=== PATIENT | female | born 2000 | race Two or more races ===

== ENCOUNTER 2024-11-03 18:03 | Emergency (ER) | payer OTHER, BC, SELFPAY ==
[2024-11-03] VITALS (17 sets, daily range): BP systolic 121–149; BP diastolic 62–98; PULSE 80–83; RESP 16–18; TEMP 36.6; O2SAT 93–100
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
--- NOTE | 2024-11-03 18:28 | ECG_ITS ---
Test Date: 2024-11-03 19:02:07 Measurements Intervals [place] Rate: 65 P: 47 FL: 152 QRS: 14 QRSD: 92 T: 14 QT: 410 QTc: 427 Interpretive Statements SINUS RHYTHM WITH SINUS ARRHYTHMIA BASELINE ARTIFACT- I, II, AVR, AVF NORMAL ECG No previous ECG available for comparison Electronically Signed On 11-03-2024 19:58:08 CDT by Charles Ahumada D.O.
[2024-11-03 18:51] LABS: Basophils Absolute Auto 0.1 K/mm3 (0.0-0.1); Basophils Percent Auto 0.8 % (0.2-1.2); Eosinophils Absolute Auto 0.2 K/mm3 (0-0.3); Eosinophils Percent Auto 2.4 % (0-4.4); Hematocrit 34.8 % (37.0-47.0); Hemoglobin 10.4 g/dL (12.0-15.0); Immature Granulocyte Absolute 0.01 K/mm3 (0.00-0.031); Immature Granulocyte Percent A 0.2 % (0-0.5); Lymphocytes Absolute Auto 2.81 K/mm3 (0.9-3.2); Lymphocytes Percent Auto 45.5 % (18.3-44.2); Mean Corpuscular HGB Conc 29.9 g/dl (32-36); Mean Corpuscular Hemoglobin 22.6 pg (26-34); Mean Corpuscular Volume 75.7 fl (80-100); Mean Platelet Volume 8.4 fl (7.4-10.4); Monocytes Absolute Auto 0.6 K/mm3 (0.1-0.6); Monocytes Percent Auto 9.2 % (2.6-8.5); Neutrophils Absolute Auto 2.6 K/mm3 (1.3-6.7); Neutrophils Percent Auto 41.9 % (45.5-73.1); Platelet Count Result 447 k/mm3 (150-375); White Blood Count 6.2 K/mm3 (4.5-10.0)
[2024-11-03 19:03] LABS: Ethanol < 10 mg/dL (<10)
[2024-11-03 19:04] LABS: Alanine Aminotransferase 14 U/L (6-35); Albumin Level 4.2 g/dL (3.5-5.1); Alkaline Phosphatase 74 U/L (38-126); Anion Gap 8 mmol/L (4-12); Aspartate Amino Transferase 39 U/L (14-36); Bilirubin,Total 0.3 mg/dL (0.2-1.3); Blood Urea Nitrogen 13 mg/dL (7-17); Calcium 8.9 mg/dL (8.4-10.2); Carbon Dioxide 26 mmol/L (22-30); Chloride 107 mmol/L (98-107); Estimated CRCL calculation 99 ml/min; Estimated Glomerular Filt Rate > 60; Glucose 94 mg/dL (65-110); Sodium 141 mmol/L (137-145); Total Protein 7.8 g/dL (6.3-8.2)
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
[2024-11-03 19:08] LABS: INR 1.1; Prothrombin Time 14.2 Seconds (11.1-14.7)
[2024-11-03 19:09] LABS: Partial Thromboplastin Time 23.3 Seconds (22.3-36.8)
[2024-11-03 19:21] LABS: Band Neutrophils Percent 0 % (0-6)
[2024-11-03 19:22] LABS: Anisocytosis 1+; Hypochromasia 1+; Platelet Estimate Adequate (Adequate); Schistocytes None Seen
[2024-11-03 19:47] LABS: SPREG INTERNAL CONTROL Positive; Serum Qual hCG Negative
--- OUTSIDE RECORDS SUMMARY | 2024-11-03 20:06 | XMS_ITS | Data Portability ---
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 Plan of Treatment Reminders Order Date Submit Date Provider Last Modified By Organization Details Last Modified Time Details Appointments None recorded. Lab lipid panel, blood 2016 017 AGATA [facility], [address], [place], [address], 7 17:08:40 hemoglobin A1c, QN, blood 2016 017 AGATA [facility], [address], [address], [place], [address], 7 13:49:45 mononucleo sis, heterophil e Ab, blood 2015 016 [id number]_ [id number] [facility], [address], [place], [address], 6 04:28:46 HbA1c (hemoglobi n A1c), blood 2015 016 [email or web address] 7 [facility], [address], [place], [address], 6 22:14:04 lipid panel, serum 2015 016 [email or web address] 7 [facility], [address], [address], [place], [address], 6 22:14:04 Referral pediatric bariatric medicine referral - Pt who is desiring evaluation for weight loss program 2015 016 [email or web address] Not available 6 22:14:04 Procedures None recorded. Surgeries None recorded. Imaging ultrasound , neck - 15 yr old with tonsilliti s and pharygeal swelling - regarding retrophary ngeal abscess - please call report to [phone] 2015 016 [id number]_ [id number] [facility], [address] [place], [address], 6 04:28:45 Medication Orders Ventolin HFA 90 mcg/actuat ion aerosol inhaler 2016 017 INTERFACE Not available 7 18:54:35 Bromfed DM 2 mg-30 mg-10 mg/5 mL oral syrup 2016 017 ATHENAFAX Not available 7 19:51:51 Pooja-D 24 Hour 180 mg-240 mg tablet,ext ended release 2015 016 DBA_PATCH_ [id number] Not available 6 04:28:44 amoxicilli n 875 mg-potassi um clavulanat e 125 mg tablet 2015 016 DBA_PATCH_ [id number] Not available 6 04:28:49 Saline Nasal 0.65 % spray aerosol 2015 016 DBA_PATCH_ [id number] Not available 6 04:28:50 Lexapro 10 mg tablet 2015 016 INTERFACE Not available 6 17:43:44 cetirizine 10 mg tablet 2015 016 7 [facility], [address] [facility], [place], [address], 6 22:14:04 Patanase 0.6 % nasal spray 2015 016 [email or web address] 7 [facility], [address] [place] [address], [address], 6 22:14:03 triamcinol one acetonide 0.1 % topical ointment 2015 016 [email or web address] 7 [facility], [facility] [place], [address], 6 22:14:03 Patient TargetsNo targets recorded. Patient Instructions Encounter Date Encounter Id Patient Instructions Last Modified By Organization Details Last Modified Time 06/12/2015 [id number] influenza (flu) vaccine: care instructions [email or web address] Not available 06/18/2015 12:07:26 learning about abstinence for teens [email or web address] Not available 06/13/2015 22:14:04 learning about drug use in teens [email or web address] Not available 06/13/2015 22:14:03 learning about stress in teens Not available 06/13/2015 22:14:03 08/01/2015 [id number] Discussed weight management strategies, areas of stress - brother, school challenges - review management strategies pt states she is learning in therapy. Face - to face - 30 minutes [email or web address] Not available 09/11/2015 04:31:57 09/30/2015 [id number] Discussed genera l care for upper respiratory infection - saline and suction, use of humififier and increased clear liquids appropriate for age. If high fever, increased work of breathing or decreased urine output to call immediately. Not available 09/30/2015 15:36:32 06/15/2016 [id number] A healthy lifestyle: care instructions [email or web address] Not available 06/15/2016 18:51:05 learning about abstinence for teens [email or web address] Not available 06/15/2016 18:51:04 learning about drug use in teens ywhitt Not available 06/15/2016 18:51:05 learning about stress in teens [email or web address] Not available 06/15/2016 18:51:05 07/27/2016 [id number] starting a weigh t loss plan: care instructions [email or web address] Not available 07/28/2016 11:53:59 eating healthy foods: care instructions ywhitt Not available 07/28/2016 11:53:59 Juanis commended o n making the changes started - encouraged to continue - she and Mom have discussed plans to increase exercise with the change in weat herLouis [email or web address] Not available 07/27/2016 23:12:04 Reason for Referral Pediatric Bariatric Medicine Referral for Morbid obesity Pt who is desiring evaluation for weight loss program Referring Physician: Berenice Casas, Pediatric Medicine, Encounter Date: 06/12/2015 Results Created Date Observation Date Name Description Value Unit Range Abnormal Flag Note LastModifiedBy Organization Detail LastModifiedTime 06/12/19 16 06/13/2015 lipid panel , serum cholesterol, total 187 mg/dL 125-17 0 high Not Available [facility] [address] [address] [place], [address], 06/13/2015 08:58:37 06/12/19 16 06/13/2015 lipid panel , serum HDL cholesterol 30 mg/dL 36-76 low Not Available [facility] [address] [place], [address], 06/13/2015 08:58:37 06/12/19 16 06/13/2015 lipid panel , serum triglyceride s 198 mg/dL 40-136 high Not Available [facility] [address] [place], [address], 06/13/2015 08:58:37 06/12/19 16 06/13/2015 lipid panel , serum LDL-choleste rol 117 mg/dL _(tj c) <110 high Leonard able range <100 mg/dL for patie nts with CHD or diabe antonio and <70 mg/dL for diabe tic patie nts with known heart disea se. Not Available [facility] [address] [place], [address], 06/13/2015 08:58:37 06/12/19 16 06/13/2015 lipid panel , serum chol/HDLC ratio 6.2 (calc ) < or = 5.0 high Not Available [facility] [address] [address] [place], [address], 06/13/2015 08:58:37 06/12/19 16 06/13/2015 lipid panel , serum non HDL cholesterol 157 mg/dL _(tj c) <120 high Not Available [facility] [address] [address] [place], [address], 06/13/2015 08:58:37 06/12/19 16 06/13/2015 HbA1c (hemo globi n A1c), blood hemoglobin A1C 5.7 %_of_ total _HGB <5.7 high Accor ding to ADA guide lines , hemog lobin A1c <7.0% repre sents optim al contr ol in non-p regna nt diabe tic patie nts. Diffe rent metri cs may apply to speci fic patie nt cbul destiny s. [facility] al Care in Diabe antonio-2 013. Diabe antonio Care. 2013; 36:s1 1-s66 For the purpo se of screchloe gould for the prese nce of diabe antonio <5.7% Consi stent with the absen ce of diabe antonio 5.7-6 .4% Consi stent with incre ased risk for diabe antonio (pred iabet es) >or=6 .5% Consi stent with diabe antonio This assay resul t is consi stent with an incre ased risk of diabe antonio. Curre ntly, no conse nsus exist s for use of hemog lobin A1c for diagn osis of diabe antonio for child hattie. Not Available [facility] [address] [address] [place], [address], 06/13/2015 08:58:38 09/30/19 16 10/01/2015 monon ucleo sis, heter ophil e Ab, serum heterophile, mono screen NEGATI VE negati ve normal Not Available [facility] [address] [address] [place], [address], 10/01/2015 10:42:27 06/15/19 17 06/22/2016 lipid panel , blood cholesterol, total 192 mg/dL 125-17 0 high Not Available [facility] [address], [address], 06/22/2016 17:08:40 06/15/19 17 06/22/2016 lipid panel , blood HDL cholesterol 31 mg/dL 36-76 low Not Available [facility] [address], [address], 06/22/2016 17:08:40 06/15/19 17 06/22/2016 lipid panel , blood chol/HDLC ratio 6.2 (calc ) < or = 5.0 high Not Available [address], [address], 06/22/2016 17:08:40 06/15/19 17 06/22/2016 lipid panel , blood non HDL cholesterol 161 mg/dL _(tj c) <120 high [facility] Lipid Panel (fast ing) is recom alysha renteria se of a poten tial lipid disor savage. Not Available [facility] [address], [address], 06/22/2016 17:08:40 10/01/19 16 09/30/2015 ultra sound , neck No observ ation record ed. [email or web address] Not Available 09/21 17:41:41 Result Notes None recorded. Problems Name Problem SNOMED Code Status Onset Date Resolution Date Notes Provider Name and Address Organization Details Recorded Time Anxiety disorder 252335172 Active Berenice Casas MD [address] [place], [address], [facility] [place] [facility] 6 17:43:39 Premenstrual tension syndrome [id number] Sarita Casas MD [address] [place], [address], [facility] 6 17:55:05 Impacted cerumen 39697173 Sarita Casas MD [address] [place], [address], [facility], 6 17:55:05 Tonsillitis 13231936 Active Berenice Casas MD [address] [place], [address], [facility], 6 17:55:05 Morbid obesity 786847489 Active Berenice Casas MD [address] [place], [place] [address], [address], [facility], 6 22:14:03 Acanthosis nigricans 812595915 Active Berenice Casas MD [address] [place], [place] [address], [address], [facility], 6 17:43:39 Headache 21169378 Active Berenice Casas MD [address] [place] [address], [address], [facility], 6 22:14:03 Allergic rhinitis 95316730 Active Berenice Casas MD [address] [place] [address], [address], [facility], 6 22:14:03 Contact dermatitis 56594274 Active Berenice Casas MD [address] [place], [place] [address], [address], [facility], 6 22:14:03 Cellulitis and abscess of trunk 260331473 Active Berenice Casas MD [address] [place] [address], [place], [address], [facility], 6 17:55:05 Attention deficit hyperactivity disorder 642938696 Active Berenice Casas MD [address] [place], [place] [address], [address], [facility], 6 17:43:39 Problem Notes None recorded. Procedures Surgical History Date Name Laterality Status Provider Name and Address Organization Details Recorded Time 5 Cerumen Removal completed Berenice Casas MD [address] [place] [address], [address], [facility] 06/13/2014 05:29:29 Absence of any Surgery completed Berenice Peoples [facility] 06/12/2015 17:35:43 Imaging Results None recorded. Procedure Notes None recorded. Medical Equipment None Reported. Allergies No known drug allergies Medications Name Sig Start Date Stop Date Status Note LastModified by Organization Details LastModified Time metformin 500 mg tablet active Not Available Not Available Not Available clindamycin HCl 300 mg capsule active Not Available Not Available Not Available cetirizine 10 mg tablet Take 1 tablet every day by oral route. 2015 active Not Available Not Available Not Avai lable benzonatate 200 mg capsule active Not Available Not Available Not Available hydrocodone 5 mg-acetamin ophen 325 mg tablet active Not Available Not Available No t Available prednisone 20 mg tablet active Not Available Not Available Not Available penicillin V potassium 500 mg tablet active Not Available Not Available Not Available sulfamethox azole 800 mg-trimetho prim 160 mg tablet Take 1 tablet twice a day by oral route for 10 days. 08/27 completed Not Available Not Available Not Available amoxicillin 875 mg tablet Take 1 tablet every 12 hours by oral route for 10 days. active Not Available Not Available No t Available naproxen sodium 550 mg tablet Take 1 tablet every 12 hours by oral route. active Not Available Not Available No t Available triamcinolo ne acetonide 0.1 % topical ointment APPLY TWICE DAILY active Not Available Not Available No t Available clotrimazol e-betametha sone 1 %-0.05 % topical cream active Not Available Not Available Not Available zolpidem 5 mg tablet active Not Available Not Available No t Available ergocalcife rol (vitamin D2) 1,250 mcg (50,000 unit) capsule active Not Available Not Available Not Available ibuprofen 600 mg tablet Take 1 tablet 3 times a day by oral route as needed. active Not Available Not Available No t Available bromphenira mine-pseudo ephedrine-D M 2 mg-30 mg-10 mg/5 mL oral syrup Take 10 mL every 4-6 hours by oral route as directed. active Not Available Not Available No t Available doxycycline hyclate 100 mg tablet active Not Available Not Available No t Available amoxicillin 875 mg-potassiu m clavulanate 125 mg tablet Take 1 tablet every 12 hours by oral route. active Not Available Not Available No t Available escitalopra m 10 mg tablet 1 po q day active Not Available Not Available No t Available Saline Nasal 0.65 % spray aerosol [place] 1-2 spray in nostril then suction; repeat on second nostril - DO NOT spray in both nostrils at same time 2015 active Not Available Not Available Not Avai lable Pooja-D 24 Hour 180 mg-240 mg tablet,exte nded release Take 1 tablet every day by oral route. 2015 active Not Available Not Available Not Avai lable ProAir HFA 90 mcg/actuati on aerosol inhaler Inhale 2 puffs every 4 hours by inhalatio n route. active Not Available Not Available No t Available Vyvanse 50 mg capsule Take 1 capsule every day by oral route in the morning for 30 days. 02/24 completed Not Available Not Available Not Available Vyvanse 40 mg capsule Take 1 capsule every day by oral route in the morning for 30 days. 07/27 completed Not Available Not Available Not Available olopatadine 0.6 % nasal spray [place] 2 sprays twice a day by intranasa l route. active Not Available Not Available No t Available Vitals Date Recorded Body temperature Body mass index (BMI) Body height Heart rate Body weight Systolic blood pressure Diastolic blood pressure Provider Name and Address Organization Details Last Updated DateTime 6 97.8 [degF] 51.3 kg/m2 157.48 cm 94 /min 647851. 004198 g 151 mm[Hg] 94 mm[Hg] Berenice Peoples [facility], 6 17:35:43 Date Recorded Body height Body weight Body mass index (BMI) Body temperature Heart rate Systolic blood pressure Diastolic blood pressure Provider Name and Address Organization Details Last Updated DateTime 7 157.48 cm 601040. 1 g 53.3 kg/m2 97.7 [degF] 84 /min 130 mm[Hg] 84 mm[Hg] GLORIA DIA [facility], 7 18:08:47 Date Recorded Body height Body weight Body mass index (BMI) Body temperature Provider Name and Address Organization Details Last Updated DateTime 07/27/2016 160.02 cm 085044.12 g 51.1 kg/m2 98.6 [degF] GLORIA DIA [facility] 07/27/2016 18:18:00 Date Recorded Body mass index (BMI) Body weight Body height Body temperature Provider Name and Address Organization Details Last Updated DateTime 08/01/2015 54.1 kg/m2 397252.77 7057 g 154.94 cm 98.5 [degF] Berenice Peoples [facility] 08/01/2015 17:06:11 Date Recorded Body height Body weight Body mass index (BMI) Body temperature Provider Name and Address Organization Details Last Updated DateTime 09/30/2015 154.94 cm 669624.72 g 53.5 kg/m2 98.6 [degF] Eric Stanley [facility] 09/30/2015 15:39:07 Social History Question Answer Notes LastModified by Organizat ion Details LastModified Time Tobacco Smoking Status Never Smoker Not Available [facility] 03/19/2020 03:10:30 Animal Exposure? No Information not available 06/06/2013 What Is Your Level Of Caffeine Consumption? Occasional [id number] Information not available 03/19/2020 How Much Tobacco Do You Chew? None [id number] Information not available 03/19/2020 What Type Of Sewer And Inspector Do You Use? None [id number] Information not available 03/19/2020 What Type Of Diet Are You Following? REGULAR [id number] Information not available 03/19/2020 Education 8 Information no t available 06/06/2013 Family History Of Heart Disease? Yes Information not available 06/06/2013 Are There Any Guns Present In Your Home? No [id number] Information not available 03/19/2020 Which Of Your Hands Is Dominant? Left [id number] Information not available 03/19/2020 Hard Of Hearing Or Deaf In One Or Both Ears? No Information not available 06/06/2013 What Is Your Home Situation? Mother [id number] Information not available 03/19/2020 Legally Blind In One Or Both Eyes? No Information not available 06/06/2013 MOTHER'S AGE 42 Information not available 06/06/2013 SIBLINGS NAMES/AGES 1. AGE: Information not available 06/06/2013 MOTHER'S NAME Violet Marquez Informatio n not available 06/06/2013 MOTHER'S HEALTH - GOOD? Yes Information not available 06/06/2013 FATHER'S NAME Jayson Marquez Informatio n not available 06/06/2013 FATHER'S AGE 46 Information not available 06/06/2013 FATHER'S HEALTH - GOOD? Yes Information not available 06/06/2013 SMOKERS IN HOME No Information not available 06/06/2013 MOTHER'S OCCUPATION Health Insurance Information not available 06/06/2013 FATHER'S OCCUPATION [place] Information not available 06/06/2013 LIVING STATUS LIVES WITH MOTHER Information not available 06/06/2013 HOURS SLEEP/NIGHT 8+ Information not available 06/06/2013 NAME OF SCHOOL [employer] Information not available 06/06/2013 PETS IN HOME No Information not available 06/06/2013 Marital Status Informatio n not available 06/06/2013 What Is Your Parents' Marital Status? [id number] Information not available 03/19/2020 Performs Monthly Self-breast Exam? No EDUCATED ON BREAST EXAM smoney Information not available 06/12/2015 What Is The Name Of Your School? [employer] [id number] Information not available 03/19/2020 Do You Use Your Seat Belt Or Car Seat Routinely? Yes [id number] Information not available 03/19/2020 Seat Belts Used Routinely Yes Information not available 06/06/2013 Are You Sexually Active? No [id number] Information not available 03/19/2020 Smoke Alarm In Home Yes Information not available 06/06/2013 Do You Have Smoke And Carbon Monoxide Detectors In Your Home? Yes [id number] Information not available 03/19/2020 How Much Tobacco Do You Smoke? No [id number] Information not available 03/19/2020 General Stress Level Medium Information not available 06/06/2013 Do You Use Sunscreen Routinely? Yes [id number] Information not available 03/19/2020 How Many Years Have You Smoked Tobacco? 0 [id number] Information not available 03/19/2020 Year In School 11 Informatio n not available 09/30/2015 Sex: Unknown Functional Status Question Answer Note LastModified by Organizat ion Details LastModified Time What is your level of alcohol consumption? None [id number] Information not available 03/19/2020 Are you currently employed? No [id number] Information not available 03/19/2020 What is your exercise level? Occasional [id number] Information not available 03/19/2020 Mental Status None recorded. Family History Nothing Reported. Medical History Condition Response Diabetes N Heart Problems N Muscle, Joint, or Bone Problems N Bedwetting N Vision or Eye Problems N Seizures/Epilepsy N Blood Diseases N Ear or Hearing Problems N Serious Illness or Injuries N Congenital Anomalies N Cancer N ADD or ADHD Y Thyroid Problems N Depression N Allergies N Asthma N Developmental or Behavioral Disorders N Skin Problems N Anemia N Bladder or Kidney Problems N Constipation N Hospital Admission other than N Eczema, Hives or other skin conditions Y Chicken Pox N Gynecological History Statement/Question Response Flow Moderate Duration of Flow (days) 5 Menstrual Cramps Y Age at Menarche 9 Current Control Method Abstinence Miss School due to Cramps Y Frequency of Cycle (Q days) 30 Sexually Active? N Control at End of Visit Abstinence Menses Monthly N LMP Approximate Desired Control Method Abstinence Obstetrics History GPAL:G 0 P 0 0 0 0 Immunizations Vaccine Type Date Status Note Provider Nam e and Address Organization Details Recorded Time Influenza, live, quadrivalent, intranasal 4 completed Not Available [facility] 2019 02:20:30 DTaP 0 completed [facility], 06/06/2013 17:55:19 DTaP 9 completed [facility], 06/06/2013 17:55:19 DTaP 3 completed [facility], 06/06/2013 17:55:19 Hep B, adolescent or pediatric 9 completed [facility], 06/06/2013 17:55:19 DTaP 9 completed [facility], 06/06/2013 17:55:19 Hep B, adolescent or pediatric 9 completed Lorie Tunde null, [place] - [facility], 06/06/2013 17:55:20 Hep B, adolescent or pediatric 9 completed [place] [facility], 06/06/2013 17:55:20 DTaP 9 completed [place] [facility], 06/06/2013 17:55:20 IPV 0 completed [place] [facility], 06/06/2013 18:39:20 Hib, unspecified formulation 0 completed [place] [facility], 06/06/2013 18:39:20 IPV 3 completed [place] [facility], 06/06/2013 18:39:20 MMR 3 completed [place] [facility], 06/06/2013 18:39:20 Hib, unspecified formulation 9 completed [place] [facility], 06/06/2013 18:39:20 MMR 0 completed [place] [facility], 06/06/2013 18:39:20 IPV 9 completed L[place] [facility], 06/06/2013 18:39:20 Hib, unspecified formulation 9 completed L[place] [facility], 06/06/2013 18:39:20 Hib, unspecified formulation 9 completed L[place] [facility], 06/06/2013 18:39:20 IPV 9 completed [place] [facility], 06/06/2013 18:39:20 Influenza, live, quadrivalent, intranasal 1 completed [place] [facility], 06/06/2013 18:45:08 Hep A, unspecified formulation 3 completed L[place] [facility], 06/06/2013 18:45:08 Tdap 1 completed BASIL[facility], 06/06/2013 18:45:08 Hep A, unspecified formulation 1 completed BASILIA Arnold [facility], 06/06/2013 18:45:08 meningococcal MCV4, unspecified formulation 1 completed BASILIA Arnold [facility], 06/06/2013 18:45:08 Influenza, live, quadrivalent, intranasal 5 completed Not Available [facility] 2019 02:20:28 Meningococcal MCV4O 5 completed Not Available [facility] 2019 02:20:27 Influenza, split virus, quadrivalent, PF 6 completed Not Available [facility] 2019 02:20:36 HPV9 6 completed Not Available [facility] 2019 02:20:35 Past Encounters Encounter ID Performer Location Encounter Start Date Encounter Closed Date Diagnosis/Indication Diagnosis SNOMED-CT Code Diagnosis ICD10 Code Diagnosis Note [id number] MD [facility] [address] [place] [address] 08/17/2012 18:33:59 08/18/2012 03:54:21 [id number] MD [facility] [address] [place] [address] 01/24/2013 17:59:20 02/16/2013 03:53:51 [id number] MD [facility] [address] [place] [address] 06/06/2013 15:16:41 06/06/2013 16:32:05 Well child 061992952 Influenza vaccine needed 2738154697 106 Increased body mass index 19815994 Attention deficit hyperactivity disorder 783189233 [id number] MD [facility] [address] [place] [address] 07/25/2013 18:11:33 07/25/2013 19:24:25 Headache 83679167 Attention deficit hyperactivity disorder 652087499 Allergic rhinitis 25696438 [id number] [facility] [address] [place] [address] 02/15/2014 17:43:15 02/19/2014 03:53:42 Anxiety disorder 324763289 Premenstru al tension syndrome 82140045 [id number] [facility] [address] [place] [address] 04/12/2014 17:30:40 04/27/2014 03:46:55 Premenstrual tension syndrome 50813365 Anxiety disorder 172503523 [id number] MD [facility] [address] [place] [address] 06/12/2014 16:20:49 06/14/2014 03:46:57 Well child 831180006 Administra tion of bacterial vaccine [id number] Influenza vaccine needed [id number] Contact dermatitis [id number] Impacted cerumen [id number] [facility] [address] [place] [address] [phone] 0 06/28/2014 16:56:16 06/28/2014 18:41:19 Tonsillitis 73504121 [id number] [facility] [address] [place] [address] [phone] 0 10/03/2014 16:33:46 10/03/2014 17:26:25 Allergic rhinitis 07401238 [id number] [facility] [address] [place] [address] [phone] 0 06/12/2015 16:24:40 06/12/2015 18:50:41 Headache 74762165 R51 Contact dermatitis 18462 004 L25.9 Allergic rhinitis 457256 04 J30.9 Adult heal th examination 729439675 Z00.01 Morbid obesity 529345470 E66.01 Needs infl uenza immunization 233005588 Z23 [id number] [facility] [address] [place] [address] [phone] 0 08/01/2015 16:38:23 08/01/2015 17:02:48 Attention deficit hyperactivity disorder 855415316 F90.9 behavioral therapy at this time Anxiety disorder 6188288 06 F41.9 Acanthosis nigricans 402 260186 L83 reviewed weight management strategies Administra tion of viral vaccine 29649625 Z23 [id number] [facility] [address] [place] [address] 09/30/2015 15:20:35 09/30/2015 17:08:08 Upper respiratory infection 26359660 J06.9 Tonsillitis 16608342 J03 .90 Allergic rhinitis 372129 04 J30.9 [id number] MD [facility] [address] [place] [address] 06/15/2016 17:32:23 06/15/2016 19:14:44 Adult health examination 280712353 Z00.01 Eating disorder 39425664 F50.9 Well child 606344568 Z00 .129 Cough 98004043 R05 [id number] [facility] [address] [place] [address] 07/27/2016 17:49:04 07/27/2016 18:58:08 Cough variant asthma 582163959 J45.991 Acanthosis nigricans 402 707305 L83 reviewed weight management strategies Health Concerns Section Related Observation LastModified by Organization Detai ls LastModified Time None Recorded Concern Status LastModified by Organization Details LastModified Time None Recorded Advance Directives Directive None Recorded Payers Insurance Date Sequence Insurance Name Policy Number Policy Mcdermott Covered Member ID Mcdermott Member ID Guarantor Name 06/12/2017 1 [employer] [id number] Juanis Marquez [id number] Violet Marquez Notes Date Note Type Note Provider Name and Address Organization Details Recorded Time 06/12/2015 text/html Pt. presents wit h Mom - pt has been trying to lose weight but Mom states that pt is not making any life-style changes. Pt has lost interest in activities just comes home gets in bed and plays on phone - occasionally will go to mall with friends. Pt. states that she feels hopeless but denies any suicidal ideation. Recent family stress with brother with legal issues in [place]. Mom states that she will support any decisions and EFFORT that pt makes but is not willing to make any financial expenditures until pt makes some effort in life-style changes. Berenice Casas MD [address] [place], [address], [facility] 06/13/2015 22:14:05 08/01/2015 text/html Juanis presents wi th Mom; depression is abating - she is having therapy sessions with Mrs. Andrew. Her ADHD is self-managed but anxiety had been inhibiting social interaction and continued overeating and resulting depression. Berenice Casas MD [address] [place], [address], [facility] 09/11/2015 04:32:09 09/30/2015 text/html Pt. presents wit h mom - pt has had symptoms for 1 week fever has abated but unable to swallow has not eaten well. Having dysphagia and dyspnea. Friend had sore throat 2 weeks ago - share drinks. Use Tums, Sinus Severe - did not help. Having also epigastric pain. Berenice Casas MD [address], [place], [address], [facility] 09/30/2015 16:18:40 06/15/2016 text/html pt presenting w/ mom no concerns @ this time Berenice Casas MD [address], [place], [address], [facility] 07/01/2016 22:06:49 07/27/2016 text/html PT PRESENTING W/ MOM PT WAS SEEN IN [facility] ON 06/15/16 WT WAS 291.2 LBS AND TODAY 288.7 LBS - pt down 3 pounds - pt has been walking on her own, has decrea sed sugar beverages, chosing healthy meals! Pt's mood has been stable - pt elected to stop Lexip ro a few months ago and relates that she is feeling more optimistic and excited about the future. Pt was seen in ER - 06/16/16 having marked resp distress with binta aring with albuterol and was diagnosed with cough variant asthm a - strong family history of asthma - Mom and brother. Pt's cough has cleared with albu terol inhaler use. Berenice Casas MD [address], [place], [address], [facility] 07/27/2016 23:12:34 OBGyn Episode No OBEpisode recorded.
--- OUTSIDE RECORDS SUMMARY | 2024-11-03 20:06 | XMS_ITS | Data Portability ---
Author Organization [facility], [employer] Address [address] [place] [address] Care Team Providers Care Managing Cognitive Engineer Name Role Phone CRISTI, MOBORISJACQUIE Primary Care Provider Assessment Encounter Date Assessment Date Assessment LastModified by Organization Details LastModified Time 11/05/2021 11/05/2021 Patient presented for follow up. Studies ordered as below. Discussed plan with patient/chacho ochoa, who expressed understanding . Follow up as noted below. [email or web address] Not available 11/05/2021 18:08:34 Plan of Treatment Reminders Order Date Submit Date Provider Last Modified By Organization Details Last Modified Time Details Appointments None recorded. Lab vitamin D, 25-hydroxy , total, serum 2023 024 [employer] [facility], [address], [address], [place], [address], 4 04:16:59 iron + TIBC + ferritin, serum 2023 024 [employer] [facility], [address], [address], [place], [address], 4 12:49:44 CBC w/ auto diff 2023 024 [employer] [facility], [address], [address], [place], [address], 4 11:56:06 hepatitis C Ab, serum 2022 023 [employer] [facility], [address], [address], [place], [address], 3 05:31:29 vitamin B12 + folate, serum or blood [facility]22 [facility] [address], [address], [place], [address], 3 11:13:48 vitamin D, 25-hydroxy , total, serum 2022 0[facility], [address], [address], [place], [address], 3 05:31:52 magnesium, serum or plasma 2022 023 [facility], [address], [address], [place], [address], 3 10:09:35 CBC w/ auto diff 2022 023 [facility], [address], [address], [place], [address], 4 04:11:16 CMP, serum or plasma 2022 023 [facility], [address], [address], [place], [address], 3 11:13:44 lipid panel w/ direct LDL, serum 2022 023 [facility], [address], [address], [place], [address], 3 10:09:35 beta-HCG, quantitati ve, serum or plasma 2022 023 [facility], [address], [address], [place], [address], 3 11:13:46 test, urine 2022 023 [facility], [address], [place], [address], 3 11:28:32 CBC w/ auto diff 2022 023 [facility], [address], [address], [place], [address], 3 11:13:43 ige, total, serum 2022 023 [facility], [address], [address], [place], [address], 3 05:31:30 vitamin D, 25-hydroxy , total, serum 2022 023 [facility], [address], [address], [place], [address], 3 05:31:45 hepatitis C Ab, serum 2021 022 [facility], [address], [address], [place], [address], 5 09:18:01 H pylori Ag, qual immunoassa y, stool 2021 022 [facility], [address], [address], [place], [address], 2 17:20:11 CMP, serum or plasma 2021 022 [facility], [address], [address], [place], [address], 5 09:18:00 CBC w/ auto diff 2021 022 [facility], [address], [address], [place], [address], 5 09:18:01 TSH, serum or plasma 2021 022 [email or web address], [address], [place], [address], 5 09:18:01 hepatitis C virus Ab, serum 2021 022 shumphries 16 [facility], [address], [address], [place], [address], 3 10:54:29 CMP, serum or plasma 2021 shumphries 16 [facility], [address], [place], [address], 3 10:54:28 vitamin B12 + folate, serum or blood 2021 shumphries 16 [facility], [address], [address], [place], [address], 3 10:54:29 lipid panel, serum 2021 shumphries 16 [facility], [address], [address], [place], [address], 3 10:54:29 TSH + free T4, serum 2021 022 shumphries 16 [facility], [address], [address], [place], [address], 3 10:54:28 HbA1c (hemoglobi n A1c), blood 2021 022 shumphries 16 [facility], [address], [address], [place], [address], 3 10:54:28 CBC w/ auto diff 2021 022 shumphries 16 [facility], [address], [address], [place], [address], 3 10:54:28 vitamin D, 25-hydroxy , total, serum 2021 022 shumphries 16 [facility], [address], [address], [place], [address], 3 10:54:28 Referral obstetrici an and gynecologi st referral 2022 023 [facility], [address] [facility], [place], [address], 4 04:05:14 optometris t referral 2022 023 [facility], [address] [facility], [address], [place], [address], 3 05:25:[address] referral 2021 022 alvaro Dasilva MD, [address], [place], [address], 5 09:18:[address] referral 2021 022 [email or web address] Not available 5 16:41:[address] referral 2021 022 [email or web address] Lila Dasilva MD, [address], [address], [place], [address], 5 16:41:07 Procedures None recorded. Surgeries None recorded. Imaging None recorded. Medication Orders Vitamin D2 1,250 mcg (50,000 unit) capsule 2023 024 [id number], [address] [place], [address], 4 12:48:42 Vitamin 27 mg iron-800 mcg tablet 2022 023 [id number], [address] [place], [address], 3 14:31:31 omeprazole 20 mg capsule,de layed release 2021 022 mshenouda Not available 3 09:56:54 escitalopr am 10 mg tablet 2021 022 mshenouda Not available 3 09:56:39 buspirone 10 mg tablet 2021 022 mshenouda Not available 3 09:56:29 buspirone 10 mg tablet 2021 022 [email or web address] Not available 3 09:56:29 escitalopr am 10 mg tablet 2021 022 [email or web address] Not available 3 09:56:39 Symbicort 80 mcg-4.5 mcg/actuat ion HFA aerosol inhaler 2021 022 [email or web address] Not available 3 09:56:57 Patient TargetsNo targets recorded. Patient Instructions Encounter Date Encounter Id Patient Instructions Last Modified By Organization Details Last Modified Time 11/05/2021 [id number] sleep apnea: car e instructions mshenouda Not available 11/05/2021 18:30:23 body mass index: care instructions [email or web address] Not available 11/05/2021 18:30:24 learning about healthy weight mshenouda Not available 11/05/2021 18:30:23 controlling your asthma: care instructions mshenouda Not available 11/05/2021 18:30:24 learning about asthma mshenouda Not available 11/05/2021 18:30:23 03/10/2022 [id number] body mass index: care instructions mshenouda Not available 03/10/2022 17:19:03 learning about healthy weight mshenouda Not available 03/10/2022 17:19:02 03/26/2023 [id number] allergies: care instructions mshenouda Not available 03/26/2023 10:07:58 managing your allergies: care instructions mshenouda Not available 03/26/2023 10:07:59 sleep apnea: car e instructions mshenouda Not available 03/26/2023 10:07:58 infection from tattoos: care instructions mshenouda Not available 03/26/2023 10:07:59 controlling your asthma: care instructions mshenouda Not available 03/26/2023 10:07:58 learning about asthma mshenouda Not available 03/26/2023 10:07:57 spirometry testing* [facility] Not available 03/26/2023 11:31:12 body mass index: care instructions mshenouda Not available 03/26/2023 10:07:59 learning about healthy weight mshenouda Not available 03/26/2023 10:07:58 body mass index: care instructions mshenouda Not available 03/26/2023 10:07:59 learning about healthy weight mshenouda Not available 03/26/2023 10:07:58 11/02/2023 [id number] cellulitis: care instructions mshenouda Not available 11/02/2023 12:48:39 iron deficiency anemia: care instructions mshenouda Not available 11/02/2023 12:48:39 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 for Sc reening for malignant neoplasm of cervix Referring Physician: Danya Louie, Internal Medicine, Encounter Date: 11/05/2021 Psychologist Referral for Mi xed anxiety and depressive disorder Referring Physician: Danya Louie Internal Medicine, Encounter Date: 11/05/2021 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 Referral for Sc reening for malignant neoplasm of cervix Referring Physician: Danya Louie Internal Medicine, Encounter Date: 03/10/2022 Train Conductor And Gynecologis t Referral for Urine test positive Referring Physician: Danya Louie Internal Medicine, Encounter Date: 03/26/2023 Dancer Or Choreographer Referral for Scr eening procedure Referring Physician: Danya Louie Internal Medicine, Encounter Date: 03/26/2023 Results Created Date Observation Date Name Description Value Unit Range Abnormal Flag Note LastModifiedBy Organization Detail LastModifiedTime 03/26/2003/26/2023 COMPL ETE CBC W/AUT O DIFF WBC white blood cell count 5.3 thous and/u L 3.5-10 .0 Not Available [facility] (Main Location) [address] ,, [place], [address], 03/31/2023 11:13:43 03/26/20 23 03/26/2023 COMPL ETE CBC W/AUT O DIFF WBC red blood cell count 4.3 mark on/uL 3.5-5. 5 Not Available [facility] (Main Location) [address] ,, [place], [address], 03/31/2023 11:13:43 03/26/20 23 03/26/2023 COMPL ETE CBC W/AUT O DIFF WBC hemoglobin 10.8 g/dL 11.5-1 6.5 low Not Available [facility] (Main Location) [address] ,, [place], [address], 03/31/2023 11:13:43 03/26/20 23 03/26/2023 COMPL ETE CBC W/AUT O DIFF WBC hematocrit 34 % 35-55 low Not Available [facility] (Main Location) [address] ,, [place], [address], 03/31/2023 11:13:43 03/26/20 23 03/26/2023 COMPL ETE CBC W/AUT O DIFF WBC MCH 25 pg 25-35 Not Available [facility] (Main Location) [address] ,, [place], [address], 03/31/2023 11:13:43 03/26/20 23 03/26/2023 COMPL ETE CBC W/AUT O DIFF WBC MCHC 32 g/dL 31-38 Not Available [facility] (Main Location) [address] ,, [place], [address], 03/31/2023 11:13:43 03/26/20 23 03/26/2023 COMPL ETE CBC W/AUT O DIFF WBC MCV 78 fL 75-100 Not Available [facility] (Main Location) [address] ,, [place], [address], 03/31/2023 11:13:43 03/26/20 23 03/26/2023 COMPL ETE CBC W/AUT O DIFF WBC RDW-CV 16 % 11-15 high Not Available [facility] (Main Location) [address] ,, [place], [address], 03/31/2023 11:13:43 03/26/20 23 03/26/2023 COMPL ETE CBC W/AUT O DIFF WBC neutrophils% 36.3 % Not Available [facility] [address] ,, [place], [address], 03/31/2023 11:13:43 03/26/20 23 03/26/2023 COMPL ETE CBC W/AUT O DIFF WBC lymphocytes% 51.8 % Not Available [facility] (Main Location) [address] ,, [place], [address], 03/31/2023 11:13:43 03/26/20 23 03/26/2023 COMPL ETE CBC W/AUT O DIFF WBC monocytes% 8.3 % Not Available [facility] (Main Location) [address] ,, [place], [address], 03/31/2023 11:13:43 03/26/20 23 03/26/2023 COMPL ETE CBC W/AUT O DIFF WBC eosinophil % 2.8 % 0.0-7. 0 Not Available [facility] (Main Location) [address] ,, [place], [address], 03/31/2023 11:13:43 03/26/20 23 03/26/2023 COMPL ETE CBC W/AUT O DIFF WBC basophil % 0.6 % 0.0-3. 0 Not Available [facility] (Main Location) [address] ,, [place], [address], 03/31/2023 11:13:43 03/26/20 23 03/26/2023 COMPL ETE CBC W/AUT O DIFF WBC absolute neutrophils 1.9 cells /uL 1.5-7. 8 Not Available [facility] (Main Location) [address] ,, [place], [address], 03/31/2023 11:13:43 03/26/20 23 03/26/2023 COMPL ETE CBC W/AUT O DIFF WBC absolute lymphocytes 2.73 cells /uL 0.85-3 .90 Not Available [facility] (Main Location) [address] ,, [place], [address], 03/31/2023 11:13:43 03/26/20 23 03/26/2023 COMPL ETE CBC W/AUT O DIFF WBC absolute monocytes 0.4 cells /uL 0.2-1. 0 Not Available [facility] (Main Location) [address] ,, [place], [address], 03/31/2023 11:13:43 03/26/20 23 03/26/2023 COMPL ETE CBC W/AUT O DIFF WBC absolute eosinophils 0.2 cells /uL 0.0-0. 5 Not Available [facility] (Main Location) [address] ,, [place], [address], 03/31/2023 11:13:43 03/26/20 23 03/26/2023 COMPL ETE CBC W/AUT O DIFF WBC absolute basophils 0.0 cells /uL 0.0-0. 2 Not Available [facility] (Main Location) [address] ,, [place], [address], 03/31/2023 11:13:43 03/26/20 23 03/26/2023 COMPL ETE CBC W/AUT O DIFF WBC platelet count 515 thous and/u L 100-40 0 high Not Available [facility] (Main Location) [address] ,, [place], [address], 03/31/2023 11:13:43 03/26/20 23 03/26/2023 CMP (COMP REHEN SIVE METAB OLIC PANEL ) glucose 90 mg/dL 74-99 Not Available [facility] (Main Location) [address] [place] [address] [address] ,, [place], [address], 03/31/2023 11:13:44 03/26/20 23 03/26/2023 CMP (COMP REHEN SIVE METAB OLIC PANEL ) urea nitrogen, blood (BUN) 6 mg/dL 6-20 Not Available [facility] (Main Location) [address] [place] [address]. [address] ,, [place], [address], 03/31/2023 11:13:44 03/26/20 23 03/26/2023 CMP (COMP REHEN SIVE METAB OLIC PANEL ) total bilirubin 0.4 mg/dL 0.0-1. 2 Not Available [facility] (Main Location) [address] [place] [address]. [address] ,, [place], [address], 03/31/2023 11:13:44 03/26/20 23 03/26/2023 CMP (COMP REHEN SIVE METAB OLIC PANEL ) total protein 6.7 g/dL 6.6-8. 7 Not Available [facility] (Main Location) [address] [place], [place] [address] ,, [place], [address], 03/31/2023 11:13:44 03/26/20 23 03/26/2023 CMP (COMP REHEN SIVE METAB OLIC PANEL ) alanine aminotransfe rase (ALT) 4 U/L 0-33 Not Available [facility] (Main Location) [address] [place] [address] [address] ,, [place], [address], 03/31/2023 11:13:44 03/26/20 23 03/26/2023 CMP (COMP REHEN SIVE METAB OLIC PANEL ) alkaline phosphatase 50 U/L 40-130 Not Available [facility] (Main Location) [address] [place] [address] [address] ,, [place], [address], 03/31/2023 11:13:44 03/26/20 23 03/26/2023 CMP (COMP REHEN SIVE METAB OLIC PANEL ) aspartate aminotransfe rase (AST) 9 U/L 0-32 Not Available [facility] (Main Location) [facility] [address] ,, [place], [address], 03/31/2023 11:13:44 03/26/20 23 03/26/2023 CMP (COMP REHEN SIVE METAB OLIC PANEL ) calcium 9.3 mg/dL 8.6-10 .2 Not Available [facility] (Main Location) [facility] [address] ,, [place], [address], 03/31/2023 11:13:44 03/26/20 23 03/26/2023 CMP (COMP REHEN SIVE METAB OLIC PANEL ) albumin 3.9 g/dL 3.5-5. 2 Not Available [facility] (Main Location) [facility] [address] ,, [place], [address], 03/31/2023 11:13:44 03/26/20 23 03/26/2023 CMP (COMP REHEN SIVE METAB OLIC PANEL ) CO2 25 mmol/ L 22-29 Not Available [facility] (Main Location) [facility] [address] ,, [place], [address], 03/31/2023 11:13:44 03/26/20 23 03/26/2023 CMP (COMP REHEN SIVE METAB OLIC PANEL ) creatinine, serum 0.5 mg/dL 0.5-0. 9 Not Available [facility] (Main Location) [facility] [address] ,, [place], [address], 03/31/2023 11:13:44 03/26/20 23 03/26/2023 CMP (COMP REHEN SIVE METAB OLIC PANEL ) sodium, serum 135 mmol/ L 136-14 5 low Not Available [facility] (Main Location) [facility] [address] ,, [place], [address], 03/31/2023 11:13:44 03/26/20 23 03/26/2023 CMP (COMP REHEN SIVE METAB OLIC PANEL ) potassium, serum 4.3 mmol/ L 3.5-5. 1 Not Available [facility] (Main Location) [address] ,, [place], [address], 03/31/2023 11:13:44 03/26/20 23 03/26/2023 CMP (COMP REHEN SIVE METAB OLIC PANEL ) chloride, serum 101 mmol/ L 98-107 Not Available [facility] (Main Location) [address] ,, [place], [address], 03/31/2023 11:13:44 03/26/20 23 03/26/2023 CMP (COMP REHEN SIVE METAB OLIC PANEL ) eGFR 144 >59 Persi stent reduc tion for 3 month s or more in an eGFR <60 mL/mi n/1.7 3 m2 defin es CKD. Patie nts with eGFR value s>/=6 0 mL/mi n/1.7 3 m2 may also have CKD if evide nce of persi stent protu niuri a is prese nt. Addit ional infor manish stephens may be found at www.k doqi. org. Not Available [facility] (Main Location) [address] ,, [place], [address], 03/31/2023 11:13:44 03/26/20 23 03/26/2023 DLDL dldl 109 mg/dL 0-100 high Not Available [facility] (Main Location) [address] ,, [place], [address], 03/31/2023 11:13:45 03/26/20 23 03/26/2023 HCG (BETA HCG), QUANT ITATI VE HCG quant >65599 0.0 VERIFI ED BY DILUTI ON mIU/m L 0.0-7. 0 high Durin g Pregn venus Weeks of Gesta tion HCG mIU/m L 3 5.8-7 1.2 4 9.5-7 50 5 217-7 138 6 158-3 1795 7 3697- 07359 3 8 09076 -4163 71 9 61906 -5259 10 10 73621 -7579 77 12 95527 -6116 12 14 08035 -2988 0 15 62627 -5997 1 16 4426- 40700 17 2312- 50915 18 7915- 40503 Not Available [facility] (Main Location) [facility] ,, [place], [place], [address], 03/31/2023 11:13:46 03/26/20 23 03/26/2023 LIPID PANEL trigylceride s 81 mg/dL 0-150 Not Available [facility] (Main Location) [facility] [address] ,, [place], [address], 03/31/2023 11:13:47 03/26/20 23 03/26/2023 LIPID PANEL cholesterol 163 mg/dL 0-200 Not Available [facility] (Main Location) [facility] [address] ,, [place], [address], 03/31/2023 11:13:47 03/26/20 23 03/26/2023 LIPID PANEL uhdl 40 mg/dL 45-65 low Not Available [facility] (Main Location) [facility] ,, [employer] [place], [address], 03/31/2023 11:13:47 03/26/20 23 03/26/2023 LIPID PANEL LDL, calculated 107 mg/dL 0-100 high Not Available [facility] (Main Location) [facility] ,, [place], [address], 03/31/2023 11:13:47 03/26/20 23 03/26/2023 LIPID PANEL LDL, measured 109 mg/dL <99 high Not Available [facility] (Main Location) [facility] ,, [place], [place], [address], 03/31/2023 11:13:47 03/26/20 23 03/26/2023 LIPID PANEL LDL/HDL ratio 3 mg/dL 0-5 Not Available [facility]Main Location[facility] [address] ,[place], [address], 03/31/2023 11:13:47 03/26/20 23 03/26/2023 LIPID PANEL VLDL 16.2 mg/dL 5.0-40 .0 Not Available [facility]Main Location[facility] [address] ,, [place], [address], 03/31/2023 11:13:47 03/26/20 23 03/26/2023 LIPID PANEL cholesterol/ HDL ratio 4.08 0.00-5 .00 Not Available [facility]Main Location[facility] ,, [place], [address], 03/31/2023 11:13:47 03/26/20 23 03/26/2023 VITAM IN D 25-HY DROXY vitamin D 14.8 NG/mL 30.0-9 6.0 low Defic ient: <=20 ng/mL Insuf ficie nt: 21-29 ng/mL Suffi cient : >=30 ng/mL Not Available [facility]Main Location[facility] ,, [place], [address], 03/31/2023 11:13:48 03/26/20 23 03/26/2023 fuad metry testi ng* Spirometry Not Available [facility], [facility] [address], [place], [address], 03/26/2023 10:00:58 03/26/2003/26/2023 pregn venus test, urine HCG positi ve Not Available [facility], [facility] [address], [place], [address], 03/26/2023 09:53:39 11/02/19 24 11/02/2023 CBC WITH AUTO- DIFFE RENTI AL WBC 5.5 10*3/ uL 3.4-10 .8 Not Available [facility] [address], [place], [address], 11/04/2023 11:56:06 11/02/19 24 11/02/2023 CBC WITH AUTO- DIFFE RENTI AL RBC 3.85 modera te anisoc ytosis 10*6/ uL 3.80-5 .30 Not Available [facility] [address] [facility] [address], [place], [address], 11/04/2023 11:56:06 11/02/19 24 11/02/2023 CBC WITH AUTO- DIFFE RENTI AL HGB 8.3 g/dL 11.1-1 5.9 low Not Available [facility] [address] [facility] [address], [place], [address], 11/04/2023 11:56:06 11/02/19 24 11/02/2023 CBC WITH AUTO- DIFFE RENTI AL HCT 29.5 % 34.0-4 6.6 low Not Available [facility] [address] [facility] [address], [place], [address], 11/04/2023 11:56:06 11/02/19 24 11/02/2023 CBC WITH AUTO- DIFFE RENTI AL MCV 77 fL 79-97 low Not Available [facility] [address] [facility] [address], [place], [address], 11/04/2023 11:56:06 11/02/19 24 11/02/2023 CBC WITH AUTO- DIFFE RENTI AL MCH 21.6 pg 26.6-3 3.0 low Not Available [facility] [address], [place], [address], 11/04/2023 11:56:06 11/02/19 24 11/02/2023 CBC WITH AUTO- DIFFE RENTI AL MCHC 28.1 g/dL 31.5-3 5.7 low Not Available [facility] [address], [place], [address], 11/04/2023 11:56:06 11/02/19 24 11/02/2023 CBC WITH AUTO- DIFFE RENTI AL RDW 21.4 % 11.5-1 4.5 high Not Available [facility] [address], [place], [address], 11/04/2023 11:56:06 11/02/19 24 11/02/2023 CBC WITH AUTO- DIFFE RENTI AL platelets 447 10*3/ uL 150-40 0 high Not Available [facility] [address], [place], [address], 11/04/2023 11:56:06 11/02/19 24 11/02/2023 CBC WITH AUTO- DIFFE RENTI AL MPV 9 fL 9-13 Not Available [facility] [address], [place], [address], 11/04/2023 11:56:06 11/02/19 24 11/02/2023 CBC WITH AUTO- DIFFE RENTI AL neutrophils 48.9 % 40.0-7 4.0 Not Available [facility] [address], [place], [address], 11/04/2023 11:56:06 11/02/19 24 11/02/2023 CBC WITH AUTO- DIFFE RENTI AL absolute neutrophils 2.71 10*3/ uL 1.40-7 .00 Not Available [facility] [address], [place], [address], 11/04/2023 11:56:06 11/02/19 24 11/02/2023 CBC WITH AUTO- DIFFE RENTI AL lymphocytes 41.7 % 14.0-4 6.0 Not Available [facility] [address], [place], [address], 11/04/2023 11:56:06 11/02/19 24 11/02/2023 CBC WITH AUTO- DIFFE RENTI AL absolute lymphocytes 2.31 10*3/ uL 0.70-3 .10 Not Available [facility] [address], [place], [address], 11/04/2023 11:56:06 11/02/19 24 11/02/2023 CBC WITH AUTO- DIFFE RENTI AL monocytes 4.9 % 4.0-12 .0 Not Available [facility] [address] [facility] [address], [place], [address], 11/04/2023 11:56:06 11/02/19 24 11/02/2023 CBC WITH AUTO- DIFFE RENTI AL absolute monocytes 0.27 10*3/ uL 0.10-0 .90 Not Available [facility] [address] [facility] [address], [place], [address], 11/04/2023 11:56:06 11/02/19 24 11/02/2023 CBC WITH AUTO- DIFFE RENTI AL eosinophils 2.7 % 0.0-5. 0 Not Available [facility] [address] [facility] [address], [place], [address], 11/04/2023 11:56:06 11/02/19 24 11/02/2023 CBC WITH AUTO- DIFFE RENTI AL absolute eosinophils 0.15 10*3/ uL 0.00-0 .40 Not Available [facility] [address] [facility] [address], [place], [address], 11/04/2023 11:56:06 11/02/19 24 11/02/2023 CBC WITH AUTO- DIFFE RENTI AL basophils 0.7 % 0.0-3. 0 Not Available [facility] [address] [facility] [address], [place], [address], 11/04/2023 11:56:06 11/02/19 24 11/02/2023 CBC WITH AUTO- DIFFE RENTI AL absolute basophils 0.04 10*3/ uL 0.00-0 .20 Not Available [facility] [address] [facility] [address], [place], [address], 11/04/2023 11:56:06 11/02/19 24 11/02/2023 CBC WITH AUTO- DIFFE RENTI AL imm. gran. 1.1 % 0.0-2. 0 Not Available [facility] [address] [facility] [address], [place], [address], 11/04/2023 11:56:06 11/02/19 24 11/02/2023 CBC WITH AUTO- DIFFE RENTI AL abs. imm. gran. 0.06 10*3/ uL 0.00-0 .10 Not Available [facility] [address] [facility] [address], [place], [address], 11/04/2023 11:56:06 11/02/19 24 11/02/2023 JARRETT TIN ferritin 187 NG/mL 13-150 high Not Available [facility] [address] [facility] [address], [place], [address], 11/04/2023 11:56:07 11/02/19 24 11/02/2023 TOTAL IRON BALBIR NG CAPAC ITY iron 61 mcg/d L 27-159 Not Available [facility] [address] [facility] [address], [place], [address], 11/04/2023 11:56:07 11/02/19 24 11/02/2023 TOTAL IRON BALBIR NG CAPAC ITY UIBC 360 ug/dL 111-34 3 high Not Available [facility] [address] [facility] [address], [place], [address], 11/04/2023 11:56:07 11/02/19 24 11/02/2023 TOTAL IRON BALBIR NG CAPAC ITY total iron binding capacity 421.0 mcg/d L 250.0- 450.0 Not Available [facility] [address], [place], [address], 11/04/2023 11:56:07 11/02/19 24 11/02/2023 TOTAL IRON BALBIR NG CAPAC ITY iron saturation (calculated) 14.5 % 15.0-5 5.0 low Not Available [facility] [address] [facility] [address] [facility] [address], [place], [address], 11/04/2023 11:56:07 11/02/19 24 11/02/2023 VITAM IN D, 25-HY DROXY TOTAL vitamin D, total 19.6 NG/mL 30.0-1 00.0 low The Vitam in D Assay formu luis alberto n has been updat ed to offer direc t trace abili ty to ID-LC -MS/M S Refer ence Measu remen t Proce dure along with a reduc tion in bioti n inter feren ce. Defic ient: < 20 ng/mL Insuf ficie nt: 21 - 29 ng/mL Suffi cient : 30 - 100 ng/mL Poten tial Intox icati on: > 100 ng/mL Not Available [facility] [address] [facility] [address], [place], [address], 11/04/2023 11:56:08 03/26/20 23 03/26/2023 fuad metry testi ng* No observ ation record ed. [facility], [facility] [address], [place], [address], 11/02/2023 12:47:36 Result Notes None recorded. Problems Name Problem SNOMED Code Status Onset Date Resolution Date Notes Provider Name and Address Organization Details Recorded Time Asthma 435982893 Active 2016 Danya Louie MD [address], [place], [address], [facility] - [facility] 7 11:22:12 Sleep apnea 21233600 Active 2016 Danya Louie MD [address], [place], [address], [facility] 7 11:22:22 Obesity 257862925 Active 2016 Danya Louie MD [address], [place], [address], [facility] 7 11:22:35 Allergic rhinitis 01415799 Active 2016 Danya Louie MD [address], [place], [address], [facility] 7 11:22:50 Tattoo of skin 399643952062 Active 2016 Danya Louie MD [address], [place], [address], [facility] 7 13:18:24 Vitamin D deficiency 09271700 Active 2020 Danya Louie MD [address], [place], [address], [facility] 1 13:16:48 History of sleeve gastrectomy 8194378663644 07 Active 2021 Danya Louie MD [address], [place], [address], [facility] 2 16:24:52 Mixed anxiety and depressive disorder 965936480 Active 2021 Danya Louie MD [address], [place], [address], [facility] 2 18:22:28 Gastroesoph ageal reflux disease without esophagitis 537102482 Active 2021 Danya Louie MD [address], [place], [address], [facility] 2 17:13:02 Anemia 005206650 Active 2022 Danya Louie MD [address], [place], [address], [facility] 3 22:14:59 Problem Notes None recorded. Medical Equipment None Reported. Allergies No known drug allergies Medications Name Sig Start Date Stop Date Status Note LastModified by Organization Details LastModified Time cyclobenzap rine 10 mg tablet TAKE 1 TABLET BY MOUTH 3 TIMES A DAY 08/27 completed Not Available Not Available Not Available amoxicillin 500 mg capsule TAKE 1 CAPSULE BY MOUTH TWICE A DAY FOR 10 DAYS 03/26 completed Not Available Not Available Not Available metformin 500 mg tablet TAKE 1 TABLET BY MOUTH TWICE A DAY 06/01 completed Not Available Not Available Not Available doxycycline hyclate 100 mg capsule TAKE 1 CAPSULE BY MOUTH TWICE A DAY 03/10 completed Not Available Not Available Not Available clindamycin HCl 300 mg capsule Take 1 capsule every 8 hours by oral route. 08/17 completed Not Available Not Available Not Available Apri 0.15 mg-0.03 mg tablet TAKE 1 TABLET BY MOUTH EVERY DAY 03/26 completed Not Available Not Available Not Available azithromyci n 250 mg tablet TAKE 2 TABLETS BY MOUTH TODAY, THEN TAKE 1 TABLET DAILY FOR 4 DAYS 10/28 completed Not Available Not Available Not Available fluconazole 150 mg tablet TAKE 1 TABLET BY MOUTH ONCE FOR 1 DOSE, THEN REPEAT IN 72 HRS 03/26 completed Not Available Not Available Not Available ondansetron HCl 4 mg tablet TAKE 1 TABLET (4 MG TOTAL) BY MOUTH EVERY 6 (SIX) HOURS NEEDED FOR NAUSEA OR VOMITING 08/27 completed Not Available Not Available Not Available prednisone 20 mg tablet 08/27 completed Not Available Not Available Not Available Zyrtec 10 mg tablet Take 1 tablet every day by oral route at bedtime. 08/27 completed Not Available Not Available Not Available metronidazo le 500 mg tablet TAKE 1 TABLET BY MOUTH TWICE A DAY FOR 7 DAYS 03/26 completed Not Available Not Available Not Available prochlorper azine maleate 10 mg tablet TAKE 1 TABLET BY MOUTH EVERY 8 HOURS NEEDED 11/01 completed Not Available Not Available Not Available triamcinolo ne acetonide 0.1 % topical cream APPLY A THIN LAYER TO THE AFFECTED AREA(S) BY TOPICAL ROUTE 2 TIMES PER DAY 10/28 completed Not Available Not Available Not Available cephalexin 500 mg capsule active Not Available Not Available Not Available neomycin-po lymyxin-dex ameth 3.5 mg/mL-10,00 0 unit/mL-0.1 % eye drops INSTILL 1 DROP INTO AFFECTED EYE(S) BY OPHTHALMI C ROUTE EVERY 8 HOURS 08/17 completed Not Available Not Available Not Available buspirone 10 mg tablet TAKE 1 TABLET 3 TIMES A DAY BY ORAL ROUTE NEEDED. 03/26 completed Not Available Not Available Not Available clotrimazol e-betametha sone 1 %-0.05 % topical cream APPLY TO THE AFFECTED AND SURROUNDI NG AREAS OF SKIN BY TOPICAL ROUTE 2 TIMES PER DAY IN THE MORNING AND EVENING FOR 2 WEEKS 08/17 completed Not Available Not Available Not Available hyoscyamine 0.125 mg sublingual tablet TAKE 1 TABLET BY MOUTH EVERY 6 HOURS NEEDED FOR CRAMPING 08/27 completed Not Available Not Available Not Available ursodiol 300 mg capsule TAKE 1 CAPSULE (300 MG TOTAL) BY MOUTH 2 TIMES A DAY. 03/10 completed Not Available Not Available Not Available docusate sodium 100 mg capsule TAKE 1 CAPSULE BY MOUTH TWICE A DAY 08/27 completed Not Available Not Available Not Available omeprazole 20 mg capsule,del ayed release Take 1 capsule every day by oral route in the morning. 03/26 completed Not Available Not Available Not Available zolpidem 5 mg tablet 08/17 completed Not Available Not Available Not Available norethindro ne acetate 5 mg tablet 06/01 completed Not Available Not Available Not Available ergocalcife rol (vitamin D2) 1,250 mcg (50,000 unit) capsule Take 1 capsule every week by oral route. active Not Available Not Available No t Available azelastine 137 mcg (0.1 %) nasal spray Mitchell 2 sprays twice a day by intranasa l route. 10/28 completed Not Available Not Available Not Available ibuprofen 600 mg tablet 11/01 completed Not Available Not Available Not Available scopolamine 1 mg over 3 days transdermal patch 08/27 completed Not Available Not Available Not Available methylpredn isolone 4 mg tablets in a dose pack TAKE 6 TABLETS ON DAY 1 DIRECTED ON PACKAGE AND DECREASE BY 1 TAB EACH DAY FOR A TOTAL OF 6 DAYS 03/26 completed Not Available Not Available Not Available albuterol sulfate HFA 90 mcg/actuati on aerosol inhaler Inhale 2 puffs every 8 hours by inhalatio n route as needed. active Not Available Not Available No t Available norethindro ne (contracept meredith) 0.35 mg tablet TAKE 1 TABLET BY MOUTH EVERY DAY active Not Available Not Available No t Available bromphenira mine-pseudo ephedrine-D M 2 mg-30 mg-10 mg/5 mL oral syrup 03/17 completed Not Available Not Available Not Available fluticasone propionate 50 mcg/actuati on nasal spray,suspe nsion USE 1 SPRAY IN EACH NOSTRIL EVERY DAY NEEDED 03/10 completed Not Available Not Available Not Available doxycycline hyclate 100 mg tablet Take 1 tablet twice a day by oral route for 10 days. 08/17 completed Not Available Not Available Not Available metoclopram miranda 10 mg tablet TAKE 1 TABLET 3 TIMES A DAY BY ORAL ROUTE NEEDED. active Not Available Not Available No t Available oxycodone 5 mg tablet TAKE 1 TABLET BY MOUTH EVERY 4 HOURS NEEDED FOR PAIN 08/27 completed Not Available Not Available Not Available azithromyci n 500 mg tablet 10/28 completed Not Available Not Available Not Available escitalopra m 10 mg tablet TAKE 1 TABLET BY MOUTH EVERYDAY AT BEDTIME 03/26 completed Not Available Not Available Not Available escitalopra m 20 mg tablet 03/26 completed Not Available Not Available Not Available nitrofurant oin monohydrate /macrocryst als 100 mg capsule TAKE 1 CAPSULE BY MOUTH TWICE A DAY 08/27 completed Not Available Not Available Not Available Mucinex DM 30 mg-600 mg tablet,exte nded release 12 hr Take 1 tablet every 12 hours by oral route. 08/27 completed Not Available Not Available Not Available aprepitant 40 mg capsule 08/27 completed Not Available Not Available Not Available Symbicort 80 mcg-4.5 mcg/actuati on HFA aerosol inhaler Inhale 2 puffs twice a day by inhalatio n route for 90 days. 03/26 completed Not Available Not Available Not Available Mucinex DM 60 mg-1,200 mg tablet,exte nded release 12 hr Take 1 tablet twice a day by oral route. 01/21 completed Not Available Not Available Not Available diclofenac 1 % topical gel APPLY 2 GRAMS TO THE AFFECTED AREA(S) BY TOPICAL ROUTE 4 TIMES PER DAY 03/26 completed Not Available Not Available Not Available Vitamin 27 mg iron-800 mcg tablet Take 1 tablet every day by oral route. 2022 active Not Available Not Available Not Avai lable Saxenda 3 mg/0.5 mL (18 mg/3 mL) subcutaneou s pen injector Inject 3 mg every day by subcutane ous route in the morning for 90 days. 08/27 completed Not Available Not Available Not Available M-Pat Plus 27 mg iron-1 mg tablet TAKE 1 TABLET BY MOUTH EVERY DAY 2022 active Not Available Not Available Not Avai lable ID NOW COVID-19 Test Kit TEST DIRECTED 10/28 completed Not Available Not Available Not Available Vitals Date Recorded Body height Body temperature Respiratory rate Heart rate Body mass index (BMI) Body weight Systolic blood pressure Diastolic blood pressure Provider Name and Address Organization Details Last Updated DateTime 4 160.02 cm 97.9 [degF] 18 /min 60 /min 33.8 kg/m2 58424.1 4 g 125 mm[Hg] 74 mm[Hg] Ronda Mccormick [facility] 4 12:25:22 Date Recorded Body height Body mass index (BMI) Body weight Body temperature Respiratory rate Heart rate Systolic blood pressure Diastolic blood pressure Provider Name and Address Organization Details Last Updated DateTime 2 160.02 cm 41.1 kg/m2 353839. 43 g 97.7 [degF] 18 /min 80 /min 112 mm[Hg] 73 mm[Hg] Ronda Mccormick [facility] 2 18:10:22 Date Recorded Body height Body temperature Respiratory rate Heart rate Body mass index (BMI) Body weight Systolic blood pressure Diastolic blood pressure Provider Name and Address Organization Details Last Updated DateTime 2 160.02 cm 97.8 [degF] 18 /min 65 /min 38.4 kg/m2 51803.5 4 g 114 mm[Hg] 71 mm[Hg] Ronda Mccormick [facility] 2 16:09:16 Date Recorded Body weight Body mass index (BMI) Body height Body temperature Respiratory rate Heart rate Systolic blood pressure Diastolic blood pressure Provider Name and Address Organization Details Last Updated DateTime 3 66922.5 5 g 33.7 kg/m2 160.02 cm 97.7 [degF] 18 /min 56 /min 102 mm[Hg] 60 mm[Hg] Ronda Mccormick [facility] 3 09:27:24 Social History Question Answer Notes LastModified by Organizat ion Details LastModified Time Tobacco Smoking Status [facility] 10:59:18 In The 14 Days Before Symptom Onset, Have You Had Close Contact With A Laboratory-confirm ed COVID-19 While That Case Was Ill? No [email or web address] Information n ot available 10/28/2020 In The 14 Days Before Symptom Onset, Have You Had Close Contact With A Person Who Is Under Investigation For COVID-19 While That Person Was Ill? No [email or web address] Information not available 10/28/2020 Have You Been To An Area Known To Be High Risk For COVID-19? No [email or web address] Information not available 10/28/2020 Have You Directly Handled Bats, Rodents, Or Primates From Ebola Endemic Areas? No Information not available 10/28/2020 Have You Processed Blood Or Body Fluids From An Ebola Virus Disease Patient Without Appropriate PPE? No Information not available 10/28/2020 Have You Had Household Contact With An Ebola Virus Disease Patient? No [email or web address] Information not available 10/28/2020 Have You Had Direct Contact With A Body In An Ebola-affected Area Without Appropriate PPE? No [email or web address] Information not available 10/28/2020 Have You Had Percutaneous (e.g. Needle Stick) Or Mucous Membrane Exposure To Blood Or Body Fluids From An Ebola Virus Disease Patient? No Information not available 10/28/2020 Have You Had Other Close Contact With An Ebola Virus Disease Patient In Health Care Facilities Or Community Settings? No [email or web address] Information not available 10/28/2020 Do You Reside In Or Have You Traveled To An Area Where Ebola Virus Transmission Is Active? No [email or web address] Information not available 10/28/2020 What Was The Date Of Your Most Recent Tobacco Screening? 09/01/2018 Information not available 12/14/2018 Sex: Unknown Functional Status Question Answer Note LastModified by Organization D etails LastModified Time What is your level of alcohol consumption? None [email or web address] Information not available 01/19/2017 Mental Status None recorded. Family History Nothing Reported. Medical History No medical history recorded. Gynecological HistoryNo gynecological history recorded. Obstetrics History GPAL:G 0 P 0 0 0 0 Immunizations Vaccine Type Date Status Note Provider Nam e and Address Organization Details Recorded Time SARS-COV-2 (COVID-19) vaccine, UNSPECIFIED 1 completed Not Available [facility] 11/02/2022 10:49:40 COVID-19, mRNA, LNP-S, PF, 100 mcg/0.5mL dose or 50 mcg/0.25mL dose 2 completed Not Available [facility] 11/02/2022 10:49:40 Td(adult) unspecified formulation 4 completed Danya Louie MD [address], [place], [address], [facility] 11/02/2023 12:48:19 Past Encounters Encounter ID Performer Location Encounter Start Date Encounter Closed Date Diagnosis/Indication Diagnosis SNOMED-CT Code Diagnosis ICD10 Code Diagnosis Note [id number] Danya Louie MD [employer] [facility], [facility] [address] [place] [address] 01/19/2017 10:05:45 01/19/2017 11:42:32 Asthma 181991683 J45.909 Obesity 949278583 E66.9 Sleep apnea 71022459 G47 .30 Allergic rhinitis 240900 04 J30.1 Acanthosis nigricans 402 923398 L83 Screening for malignant neoplasm of cervix 372152306 Z12.4 Screening procedure 2012 5006 Z13.9 [id number] AVIVA MCDUFFIE APN [employer] [facility], [facility] [address] [place] [address] 03/17/2017 11:33:34 03/17/2017 12:42:07 Blister 552205879 R23.8 Asthma 488929749 J45.90 9 Obesity 160648972 E66.9 appt with bariatric referral Sleep apnea 91480258 G47 .[address] Desouza Acanthosis nigricans 402 183817 L83 [id number] Danya Louie MD [employer] [facility], [facility] [address] [place] [address] 04/02/2017 12:29:17 04/02/2017 13:30:59 Obesity 612921452 E66.9 Sleep apnea 85376764 G47 .30 Tattoo of skin 243193858 1 02 L81.8 Eruption 018952194 R21 Amenorrhea 05511398 N91. 2 [id number] Danya Louie MD [employer] [facility], [facility] [address] [place] [address] 05/03/2017 12:44:50 05/03/2017 13:57:16 Vitamin D deficiency 16148422 E55.9 take vit D , recheck 6 weeks Hyperparathyroidism 6699 9008 E21.3 will scan this week Obesity 440502000 E66.9 form filled , [id number] Danya Louie MD [employer], [facility] [address] [place] [address] 06/01/2017 12:07:42 06/01/2017 12:56:18 Skin ulcer 86972517 L98.499 Tattoo of skin 147411705 1 02 L81.8 Obesity 678004398 E66.9 form filled , Asthma 218040387 J45.90 9 Screening for malignant neoplasm of cervix 385623838 Z12.4 Eruption 244629586 R21 [id number] Danya Louie MD [employer] [facility], [facility] [address] [place] [address] 09/01/2018 15:05:10 09/01/2018 16:26:09 Asthma 528438227 J45.909 Sleep apnea 62911217 G47 .30 refuse CPAP Allergic rhinitis 755384 04 J30.1 Tattoo of skin 861239147 1 02 L81.8 Body mass index 40+ - severely obese 244288672 Z68.42 educationl ost almost 25 LB Screening for malignant neoplasm of cervix 363474160 Z12.4 Cholesterol screening 27 7952215 Z13.220 Screening procedure 2012 5006 Z13.9 Eczema 16610297 L30.9 [id number] AVIVA MCDUFFIE APN [employer] [facility], [facility] [address] [place] [address] 06/01/2019 10:39:04 06/01/2019 11:06:50 Asthma 196591487 J45.909 spirometry 09/01/18not taking symbicort - advised Sleep apnea 89751975 G47 .30 refuse CPAP Allergic rhinitis 856894 04 J30.1 Tattoo of skin 228083530 1 02 L81.8 Body mass index 40+ - severely obese 980280022 Z68.42 education Screening for malignant neoplasm of cervix 191439807 Z12.4 Cholesterol screening 27 2847753 Z13.220 LDL 126 - 04/26/17 Screening procedure 2012 5006 Z13.9 Vitamin D deficiency 347 00785 E55.9 Congestion of nasal sinus 23897017 R09.81 went to [facility] urgent care - for cold symptoms -- prednisone given at both visitsnot taking any medication otc dry cough, facial congestion , rhinitis,l ow grade fever reported x 2denies ear pain, throat pain, productive cough -pt picked uip flonase Cough 83734197 R05 [id number] Danya Louie MD [employer], [facility] [address] [place] [address] 01/22/2020 09:17:53 01/22/2020 10:14:25 Asthma 875049262 J45.909 education Body mass index 40+ - severely obese 870973140 Z68.42 education Sleep apnea 83731723 G47 .30 refuse CPAP Screening for malignant neoplasm of cervix 134610512 Z12.4 Screening procedure 2012 5006 Z13.9 Tattoo of skin 888307746 1 02 L81.8 SARS-CoV-2 352267418 U07 .1 [facility] [id number] Danya Louie MD [employer], [facility] [address] [place] [address] 10/28/2020 12:53:53 10/28/2020 13:34:26 Adult health examination 969254968 Z00.01 Allergic rhinitis 477973 04 J30.1 stable with OTC Asthma 245141665 J45.90 9 education Body mass index 40+ - severely obese 459463160 Z68.42 education Sleep apnea 30513015 G47 .30 refuse CPAP Tattoo of skin 333598069 1 02 L81.8 Screening for malignant neoplasm of cervix 236546350 Z12.4 Active or passive immunization 028163338 Z23 Vitamin D deficiency 347 90715 E55.9 recheck [id number] Danya Louie MD [employer] [facility], [facility] [address] [place] [address] 01/13/2021 16:30:19 01/13/2021 17:37:18 Adult health examination 852409903 Z00.01 Allergic rhinitis 100152 04 J30.1 stable with OTC Asthma 620443832 J45.90 9 education Body mass index 40+ - severely obese 073632585 Z68.42 educationw ill benefit from gastric surg Sleep apnea 93677959 G47 .30 refuse CPAP Vitamin D deficiency 347 04106 E55.9 recheck Tattoo of skin 864917974 1 02 L81.8 Screening for malignant neoplasm of cervix 839698167 Z12.4 Active or passive immunization 604630567 Z23 Elevated blood-pressure reading without diagnosis of hypertension 690023919 R03.0 Dash dietBP 2 weeks [id number] Danya Louie MD [employer], [facility] [address] [place] [address] 08/27/2021 16:06:47 08/27/2021 16:42:20 Body mass index 40+ - severely obese 949265505 Z68.42 educationl ost 40 LBs from gastric surg History of sleeve gastrectomy 2859238805 87149 Z90.3 06/20/21 Asthma 816788528 J45.90 9 education Sleep apnea 41879806 G47 .30 refuse CPAP Tattoo of skin 365375869 1 02 L81.8 Vitamin D deficiency 347 17863 E55.9 recheck Screening procedure 2012 5006 Z13.9 per pt 06/2021 Screening for malignant neoplasm of cervix 511235424 Z12.4 Active or passive immunization 673063127 Z23 up to datedeclin e flu shot [id number] Danya Louie MD [employer], [facility] [address] [place] [address] 11/05/2021 17:33:37 11/05/2021 18:39:20 Asthma 354611379 J45.909 educationl ast PFT 12/2021 Body mass index 40+ - severely obese 095294926 Z68.42 educationl ost 30 LBs from gastric surg Sleep apnea 36130843 G47 .30 refuse CPAP Vitamin D deficiency 347 46838 E55.9 recheck History of sleeve gastrectomy 5619739590 02634 Z90.3 06/20/21 Screening procedure 2013 5006 Z13.9 per pt 06/2021 Hyperlipid emia screening 985230244 Z13.220 Screening for malignant neoplasm of cervix 979151125 Z12.4 Active or passive immunization 406067179 Z23 up to datedeclin e flu shot Viral screening 26379668 4 Z11.59 Mixed anxi ety and depressive disorder 789506529 F41.8 No SI , No [place] [id number] Danya Louie MD [employer] [address] [place] [address] 03/10/2022 15:54:03 03/10/2022 17:26:05 Mixed anxiety and depressive disorder 981213716 F41.8 No SI , No HIa lot better Body mass index 40+ - severely obese 239541261 Z68.42 educationl ost 15 LBs from gastric surg Gastroesop hageal reflux disease without esophagitis 585681231 K21.9 Viral screening 82745360 4 Z11.59 Screening for malignant neoplasm of cervix 694861753 Z12.4 Active or passive immunization 743517357 Z23 up to datedeclin e flu shot [id number] Danya Louie MD [employer], [facility] [address] [place] [address] 03/26/2023 09:11:20 03/26/2023 10:25:50 Urine test positive 644060970 Z32.01 weight restrictio n @ work for 15 LBs Asthma 710878453 J45.90 9 educationl ast PFT 12/2021 History of sleeve gastrectomy 0216430293 12119 Z90.3 06/20/21 Body mass index 30+ - obesity 912754965 Z68.33 educationl ost 27 LBs from gastric surg Mixed anxi ety and depressive disorder 302890911 F41.8 No SI , No HIa lot better Sleep apnea [id number] G47 .30 refuse CPAP Vitamin D deficiency 347 71643 E55.9 recheck Screening for malignant neoplasm of cervix [id number] Z12.4 Active or passive immunization [id number] Z23 up to datedeclin e flu shot Viral screening 91939171 4 Z11.59 Adult heal th examination 560408505 Z00.01 Tattoo of skin 705767612 1 02 L81.8 Allergic rhinitis 652055 04 J30.1 stable with OTC Gastroesop hageal reflux disease without esophagitis 599716615 K21.9 stable Screening procedure 2012 5006 Z13.9 per pt 06/2021 Hyperlipid emia screening [id number] Z13.220 [id number] Danya Louie MD [employer], [facility] [address] [place] [address] 11/02/2023 12:13:28 11/02/2023 12:50:02 Iron deficiency anemia 19601549 D50.9 state 5280409 1 Z39.2 stable Cellulitis of skin 66247 1002 L03.90 Rt arm , on kelfex Vitamin D deficiency 347 41195 E55.9 last level 03/26/23 Health Concerns Section Related Observation LastModified by Organization Detai ls LastModified Time None Recorded Concern Status LastModified by Organization Details LastModified Time None Recorded Advance Directives Directive None Recorded Payers Insurance Date Sequence Insurance Name Policy Number Policy Mcdermott Covered Member ID Mcdermott Member ID Guarantor Name 04/06/2023 1 [employer] [id number] Juanis Marquez [id number] Juanis Marquez 03/27/2024 1 [employer] [employer] [id number] Juanis Marquez [id number] Juanis Marquez Notes Date Note Type Note Provider Name and Address Organization Details Recorded Time 11/05/2021 text/html Hypertension F/UReported bypatient.Medications: taking medications as directed; no side effects from medication Lifestyle:regular exercise; limiting/avoiding salt; compliant with low salt diet Associated Symptoms:no dizziness; no lightheadedness; no chest pain; no shortness of breath; no palpitations; no edema; no calf pain with exertion; no headache Danya Louie MD [address] [facility] [address], [place], [address], [facility] 11/05/2021 18:30:40 03/10/2022 text/html Hypertension F/UReported bypatient.Medications: taking medications as directed; no side effects from medication Lifestyle:regular exercise; limiting/avoiding salt; compliant with low salt diet Associated Symptoms:no dizziness; no lightheadedness; no chest pain; no shortness of breath; no palpitations; no edema; no calf pain with exertion; no headache did not take lexapro Danya Louie MD [address] [facility] [address], [place], [address], [facility] 03/10/2022 17:19:56 03/26/2023 text/html Hypertension F/UReported bypatient.Medications: taking medications as directed; no side effects from medication Lifestyle:regular exercise; limiting/avoiding salt; compliant with low salt diet Associated Symptoms:no dizziness; no lightheadedness; no chest pain; no shortness of breath; no palpitations; no edema; no calf pain with exertion; no headacheMedicare Annual Wellness VisitReported bypatient.Diet and Nutrition:healthy diet Fracture Risk:no history of fractures; no recent explained fracture; no sudden unexplained fractures; no previous musculoskeletal injuries Physical Activity:recent increase in physical activity; good physical condition; discussed exercise habits Depression Risk:never feels sad, empty, or tearful; no loss of interest in activities; no significant changes in weight; no sleep disturbances or insomnia; no agitation; no loss of energy; no feelings of worthlessness or guilt; no thoughts of suicide; no history of depression; no history of mood disorders Orientation:no disorientation to time; no disorientation to date; no disorientation to place Concentration and Memory:no decreased concentrating ability; no memory lapses or loss; does not forget words Speech/Motor difficulties:no speech difficulties; no difficulty expressing formulated concepts; no difficulty with fine manipulative tasks; no difficulty writing/copying; no slowed reaction time; does not knock things over when trying to pick them up Hearing:no loss of hearing Vision:no vision problems Falls Risk Assessment:no frequent falls while walking; no fall in the past year; no fall since last visit; no dizziness/vertigo Home Safety:use of seatbelts; no vision or hearing loss while driving home preg test +ve Danya Louie MD [address] [facility] [address], [place], [address], [facility] 03/26/2023 10:09:19 11/02/2023 text/html Hypertension F/UReported bypatient.Medications: taking medications as directed; no side effects from medication Lifestyle:regular exercise; limiting/avoiding salt; compliant with low salt diet Associated Symptoms:no dizziness; no lightheadedness; no chest pain; no shortness of breath; no palpitations; no edema; no calf pain with exertion; no headache Danya Louie MD [address] [facility] [address], [place], [address], [facility] 11/02/2023 12:49:00 OBGyn Episode No OBEpisode recorded.
--- OUTSIDE RECORDS SUMMARY | 2024-11-03 20:06 | XMS_ITS | Clinical Summary ---
Author Organization [facility] Address [address] [place] [address] Care Team Providers Care Scrummaster Name Role Phone Danya Louie MD Primary Care Provider [phone]- [phone] Allergies No known active allergies Medications docusate sodium (COLACE) 100 mg capsuleIndicati ons:constipatio n,Stool Softener Take 1 capsule (100 mg total) by mouth 2 (two) times a day 20 capsule 10/28/2023 Active ibuprofen (ADVIL,MOTRIN) 600 mg tabletIndicatio ns:Pain Take 1 tablet (600 mg total) by mouth every 6 (six) hours 40 tablet 10/28/2023 Active vit,sylj62-ufgk -folic (PRENATABS RX) tablet tabletIndicatio ns:Vitamin Deficiency Prevention Take 1 tablet by mouth daily 30 tablet 10/29/2023 Active Active Problems Problem Noted Date Diagnosed Date Vaginal delivery 10/26/2023 Normal course 10/26/2023 Obstetric vaginal laceration without perineal la ceration 10/26/2023 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 Morbid obesity (CMS/HCC) 03/22/2017 Bronchial asthma 03/22/2017 Gastroesophageal reflux disease 03/22/2017 Allergic rhinitis 01/19/2017 Obstructive sleep apnea 01/19/2017 Resolved Problems Problem Noted Date Diagnosed Date Resolved Date with 39 completed weeks gestation 10/25/2023 10/26/2023 No diagnosis on [place] I 02/10/202103/17 Immunizations Immunization Administration Dates Next Due Varicella 10/27/2023 Surgical History Surgery Date Site/Laterality Comments ESOPHAGOGASTRODUODENOSCOPY WISDOM TOOTH EXTRACTION Medical History Medical History Date Comments Anxiety 15 years ago Asthma 2016 Depression 2017 GERD (gastroesophageal reflux disease) 2019 Female infertility ? Sleep apnea UTI (urinary tract infection) 01/24/2021 Family History Medical History Relation Name Comments Asthma Brother Abebe Drug abuse Brother Abebe Diabetes Maternal Grandmother Kelly Stroke Maternal Grandmother Kelly Arthritis Mother Violet Depression Mother Violet Hypertension Mother Violet Obesity Mother Violet Sleep apnea Mother Violet Diabetes Other 1 Family history of diabetes mellitus - Relation: Grandparent (Added by TW Conv) Depression Other 2 Family history of depression - Relation: Grandparent (Added by TW Conv) Substance Abuse Other 3 Family histo ry of substance abuse - (Added by TW Conv) Breast cancer Paternal Grandmother Nan Cancer Paternal Grandmother Nan Heart disease Paternal Grandmother Nan Heart failure Paternal Grandmother Nan Anesthesia problems Neg Hx Relation Name Status Comments Brother Abebe Maternal Grandmother Kelly Mother Violet Other 1 Other 2 Other 3 Paternal Grandmother Nan Social History Tobacco Use Types Packs/Day Years Used Date Smoking Tobacco: Never Smokeless Tobacco: Never AUDIT-C Answer Date Recorded Q1: How often do you have a drink containing alcohol? Never 10/25/2023 Q2: How many drinks containi ng alcohol do you have on a typical day when you are drinking? Patient does not drink Q3: How often do you have si x or more drinks on one occasion? Never 10/25/2023 Overall Financial Resource Strain (CARDIA) Answe r Date Recorded How hard is it for you to pa y for the very basics like food, housing, medical care, and heating? Not very hard 10/25/2023 Exercise Vital Sign Answer Date Recorde d On average, how many days pe r week do you engage in moderate to strenuous exercise (like a brisk walk)? 3 days 10/25/2023 On average, how many minutes do you engage in exercise at this level? 30 min 10/25/2023 Hunger Vital Sign Answer Date Recorded Within the past 12 months, y ou worried that your food would run out before you got the money to buy more. Never true 10/25/19 24 Within the past 12 months, t he food you bought just didn't last and you didn't have money to get more. Never true 10/25/2023 PRAPARE - Transportation Answer Date Re corded In the past 12 months, has l ack of transportation kept you from medical appointments or from getting medications? No 07/2023 In the past 12 months, has l ack of transportation kept you from meetings, work, or from getting things needed for daily living? No 10/25/2023 Redfox Depression Scale Answer Date Recorded Redfox Depression Scale Total 4 10/28/2023 The thought of harming myself has occurred to me . Never 10/28/2023 Housing Stability Vital Sign Answer Galdino e Recorded In the last 12 months, was t here a time when you were not able to pay the mortgage or rent on time? No 10/25/2023 Number of Times Moved in the Last Year Not on fi le 10/25/2023 At any time in the past [address] [facility], were you homeless or living in a longterm (including now)? No 10/25/2023 Personal Safety Answer Date Recorded Have you ever been in or are you currently in a harmful physical or emotional relationship or is someone making you feel afraid or unsafe? Denies 10/30/2023 Comments No Sex and Gender Information Value Date Recorded Sex Assigned at Not on file Legal Sex Female 4:18 AM TUBE C[employer]ER Gender Identity Not on file Sexual Orientation Straight 12/29/2020 11 :34 PM CDT Obstetrics History Para Term AB IAB SAB Ectopic Multiple Livin g Live Births 1 1 1 0 1 1 Date Outcome GA Total Labor Labor/2nd/3rd Weight Sex Type Anes PTL Kaela A1 A5 Name Clin 2023 Term 39w 3d 0h 52m 0h 48m/0h 04m 3.16 kg (6 lb 15.5 oz) M Vagina l Epidur al N Livin g 8 [address] [place] Elsie m Jake Morin angelo Capone , CNM Complications:None Delivery Location:[facility] Main C ampus ([facility]) Last Filed Vital Signs Vital Sign Reading Time Taken Comments Blood Pressure 132/68 10/30/2023 11:20 PM CDT Pulse 82 10/30/2023 11:20 PM CDT Temperature 36.3 C (97.4 F) 10/30/2023 6:35 PM CDT Respiratory Rate 16 10/30/2023 11:20 PM CDT Oxygen Saturation 100% 10/30/2023 10:00 PM CDT Inhaled Oxygen Concentration - - Weight 90.4 kg (199 lb 4.7 oz) 10/30/2023 6:35 P M CDT Height 157.5 cm (5' 2) 10/30/2023 6:35 PM CDT Body Mass Index 36.45 10/30/2023 6:35 PM CDT Plan of Treatment Health Maintenance Due Date Last Done Comments Cervical Cancer Screening 1998 Hepatitis C Screening 1998 HPV Vaccines (1 - 3-dose series) 2013 Hepatitis B Screening 2016 Regular Well Visit/Exam 18-64 2016 Pneumococcal vaccine <65 (1 of 2 - PCV) 2017 Varicella Vaccines (2 of 2 - 13+ 2-dose series) 11/24/2023 10/27/2023 Covid-19 Vaccine (4 - 2023- season) 2024 06/05/2021, 09/13/2020, 08/20/2020 Depression Screening 10/27/2024 10/28/2023 Influenza Vaccine (Season Ended) 2025 DTaP/Tdap/Td Vaccine (4 - Td or Tdap) 09/21/2033 09/22/2023, 01/13/2021, 10/28/2020 Insurance [facility] ACCESS [facility] Advance Directives For more information, please contact: [phone] * Full Code (Latest Code Status on File) Date Activated Date Inactivated Comments 10/26/2023 7:12 PM 10/28/2023 5:23 PM * Full Code Date Activated Date Inactivated Comments 10/25/2023 11:19 PM 10/26/2023 7:12 PM Full CPR in c ase of cardiopulmonary arrest * Full Code Date Activated Date Inactivated Comments 06/20/2021 5:13 PM 06/22/2021 12:28 AM Care Teams Scrummaster Relationship Specialty Start Date End Date Danya Louie MD [address] [facility] [address] [place] [address] [facility] - General 01/12/20
--- OUTSIDE RECORDS SUMMARY | 2024-11-03 20:06 | XMS_ITS | Data Portability ---
Author Organization [employer] , [facility] Address [address] [place] [address] Care Team Providers Care Flight Communications Officer Name Role Phone [facility] Lozenge Maker Assessment No assessment recorded. Plan of Treatment Reminders Order Date Submit Date Provider Last Modified By Organization Details Last Modified Time Details Appointments ANNUAL/WE LL WOMAN EST 2024 03:15P Dillon AMANDA, DO Not available Not available Not available Lab streptoco ccus group B, culture, unspecifi ed specimen 2023 024 [email or web address], [address] [facility], [place], [address], 10/08/2023 08:08:53 Referral None recorded. Procedures None recorded. Surgeries None recorded. Imaging US, obstetric , follow-up 2023 024 [facility], [address] [place], [address], 12/07/2023 14:49:30 US, obstetric , limited 2023 024 [facility], [address] [place], [address], 11/11/2023 12:34:06 US, obstetric [facility]23 [facility] [address] [place], [address], 09/15/2023 09:21:30 Medication Orders norethind smith (contrace ptive) 0.35 mg tablet [address] [id number], [address] [place], [address], 11/10/2023 16:44:29 Reglan 10 mg tablet 2023 024 [id number], [address] [place], [address], 11/10/2023 16:43:32 Patient TargetsNo targets recorded. Patient Instructions Encounter Date Encounter Id Patient Instructions Last Modified By Organization Details Last Modified Time 09/14/2023 [id number] Call our office or go to labor and delivery for the following: If you are less than 37 weeks and have move than 5 contractions an hour. Blurring of vision or spots before your eyes and/or OSWALD Ruptured membranes or leakage of vaginal fluid -may be a steady trickle or large gush - may be clear, yellow, pink or green Decreased movement--if your baby has stopped moving or is moving less than it normally does. Do Kick Counts as instructed. Vaginal bleeding--bright red bleeding and/or clots needs medical care immediately. Any temperature above 100 degrees. Any burning or painful urination. Increased swelling in your face, hands, or feet. Stomach pains, cramps, nausea,or diarrhea. [email or web address] Not available 09/14/2023 10:22:30 11/10/2023 [id number] depression after childbirth: care instructions Not available 11/10/2023 16:36:36 Care at Home With Your Baby: Care Instructions Not available 11/10/2023 16:36:36 control after counseling Not available 11/10/2023 16:36:36 Reason for Referral None Reported. Results Created Date Observation Date Name Description Value Unit Range Abnormal Flag Note LastModifiedBy Organization Detail LastModifiedTime 10/05/19 24 10/08/2023 STREP TOCOC CUS, GROUP B CULTU RE streptococcu s, group B culture SEE NOTE abnormal STREP TOCOC CUS, GROUP B CULTU RE Micro Numbe r: [id number] Test Statu s: Final Speci men Sourc e: Recto vagin al Speci men Quali ty: Adequ ate Resul t: Group B Strep tococ cus isola simi Beta- hemol ytic strep tococ ci are predi ctabl y susce ptibl e to Penic illin and other beta- lacta ms. Susce ptibi lity testi ng not routi ootniel perfo rmed. Pleas e conta ct the labor atory withi n 3 days if susce ptibi lity testi ng is brandan ed. Note per CDC guide lines optim al recov velma is achie jamil by swabb ing both the lower vagin a and rectu m (thro ugh the anal sphin cter) . Not Available [facility] [address] , [place], [address], 10/08/2023 08:08:53 09/10/19 , obste tric No observ ation record ed. AGATA [facility] [address] [place], [address], 09/14/2023 09:51:13 09/14/19 24 09/14/2023 US, obste tric No observ ation record ed. [email or web address] [facility] [address], [place], [address], 09/15/2023 09:21:41 10/25/1910/25/2023 US, obste tric, follo w-up No observ ation record ed. [facility] [address], [place], [address], 10/27/2023 09:43:50 Result Notes None recorded. Problems Name Problem SNOMED Code Status Onset Date Resolution Date Notes Provider Name and Address Organization Details Recorded Time Finding of menstrua l bleeding Completed 201704/04/2018 Oligomen orrhea, unspecif ied; Progress : Stable Added By: Ara Dukes Add to Current Problems : NO ProblemS tatus: Resolve Not Available [facility] 2 21:24:33 Low grade squamous intraepi thelial lesion on cervical Papanico laou smear [id number] 105 Completed 201904/30/2020 Low grade squamous intraepi thelial lesion on cytologi c smear of cervix (LGSIL); Progress : Stable Added By: Ara Dukes Add to Current Problems : NO ProblemS tatus: Resolve Not Available [facility] 2 21:24:34 Infectio n by Trichomo kristina [id number] Completed 201804/30/2020 Trichomo niasis, unspecif ied; Progress : Stable Added By: John Dukes Add to Current Problems : NO ProblemS tatus: Resolve Not Available [facility] 2 21:24:33 Trichomo nal vulvovag initis 31575345 Completed 201904/30/2020 Trichomo nal vulvovag initis; Progress : Stable Added By: Johanna Ewing Add to Current Problems : NO ProblemS tatus: Resolve Not Available [facility] 2 21:24:32 Clinical finding Completed 201904/30/2020 Other general symptoms and signs; Progress : Stable Added By: Syl Abdi Add to Current Problems : NO ProblemS tatus: Resolve Not Available [facility] 2 21:24:33 Educatio n Completed 201704/30/2020 Encounte r for other general counseli ng and advice on contrace ption; Progress : Stable Added By: Jennifer Pan Add to Current Problems : NO ProblemS tatus: Resolve Not Available [facility] 2 21:24:35 Shy infectio n of genital region Completed 201804/30/2020 Candidia sis of vulva and vagina; Progress : Stable Added By: Jennifer Pan Add to Current Problems : NO ProblemS tatus: Resolve Not Available [facility] 2 21:24:32 High risk heterose xual behavior [id number] 9101 Completed 201902/13/2021 High risk heterose xual behavior ; Progress : Stable Added By: Denise Garcia Add to Current Problems : NO ProblemS tatus: Resolve Not Available [facility] 2 21:24:34 Patient asked to attend [id number] Completed 201902/13/2021 Person consulti ng for explanat ion of examinat ion or test findings ; Progress : Stable Added By: Johanna Ewing Add to Current Problems : NO ProblemS tatus: Resolve Not Available [facility] 2 21:24:34 Sexually transmit simi infectio us disease 0767790 Completed 201902/13/2021 Other specifie d predomin antly sexually transmit simi diseases ; Progress : Stable Added By: Veronica Smith Add to Current Problems : NO ProblemS tatus: Resolve Not Available [facility] 2 21:24:32 Family planning educatio n done 04322500273 9104 Completed 201705/24/2018 Family planning advice; Location : None Severity : Moderate Progress : Stable Added By: Jennifer Pan Add to Current Problems : YES ProblemS tatus: Resolve Not Available [facility] 1 19:21:48 Finding of regulari ty of menstrua l cycle Completed 201804/30/2020 Irregula r menstrua tion, unspecif ied; Progress : Stable Added By: John Dukes Add to Current Problems : NO ProblemS tatus: Resolve Not Available [facility] 2 21:24:33 Chlamydi al vulvovag initis 526378611 Completed 201904/30/2020 Chlamydi al vulvovag initis; Progress : Stable Added By: Johanna Ewing Add to Current Problems : NO ProblemS tatus: Resolve Not Available [facility] 2 21:24:34 Dysuria 57205199 Completed 201705/24/2018 Dysuria; Progress : Stable Added By: Jennifer Pan Add to Current Problems : NO ProblemS tatus: Resolve Painful micturit ion, unspecif ied; Progress : Stable Added By: Jennifer Pan Add to Current Problems : NO ProblemS tatus: Resolve Not Available [facility] 2 21:24:35 Oligomen orrhea 39201374 Completed 201704/04/2018 Oligomen orrhea; Location : None Progress : Stable Added By: Ara Dukes Add to Current Problems : NO ProblemS tatus: Resolve Oligomen orrhea; Location : None Progress : Stable Added By: Ara Dukes Add to Current Problems : YES ProblemS tatus: Resolve; Start Date : 01/15/20 18 Not Available [facility] 2 19:23:55 Syphilis test finding 889822514 Completed 201704/30/2020 Encounte r for screenin g for infectio ns with a predomin antly sexual mode of transmis cornelius; Progress : Stable Added By: Erik Castrejon Add to Current Problems : NO ProblemS tatus: Resolve Not Available [facility] 2 21:24:33 Venereal disease screenin g Completed 201710/24/2018 Screenin g for STDs; Progress : Stable Added By: Yahaira Modi Add to Current Problems : NO ProblemS tatus: Resolve Screenin g for STDs; Location : None Progress : Stable Added By: Yahaira Modi Add to Current Problems : YES ProblemS tatus: Current Not Available [facility] 2 21:24:34 Body mass index 30+ - obesity 186612598 Active 2022 taking LDASA Melba Rodarte, [facility] [address] [place], [address] , [facility] 4 10:46:39 Bacteria l vaginosi s 847069295 Active 2022 Chiquis Dasilva null, [facility] 3 18:50:47 Pregnanc y 62683358 Completed 202208/10/2024 Cherelle Haas null, [facility] 5 12:03:48 History of sleeve gastrect екатерина [id number] 9107 Completed May 2021 Melba Rodarte, [facility] [address] [place], [address] , [facility] 4 10:46:39 Body mass index 30+ - obesity 453913480 Completed 2022 taking LDASA Melba Rodarte, [facility] [address] [facility], [place], [address] , [facility] [employer] [facility] 10:46:39 Problem Notes None recorded. Procedures Surgical History Date Name Laterality Status Provider Name and Address Organization Details Recorded Time 05/06/2022 Date of Last Pap Smear completed Clare Johnson [facility] [facility] 08/17/2022 00:36:31 Imaging Results None recorded. Procedure Notes None recorded. Medical Equipment None Reported. Allergies No known drug allergies Medications Name Sig Start Date Stop Date Status Note LastModified by Organization Details LastModified Time cyclobenz aprine 10 mg tablet TAKE 1 TABLET BY MOUTH 3 TIMES A DAY 08/17 completed Not Available Not Available Not Available amoxicill in 500 mg capsule TAKE 1 CAPSULE BY MOUTH TWICE A DAY FOR 10 DAYS 08/17 completed Not Available Not Available Not Available Colace 100 mg capsule Take 1 capsule every day by oral route. 2022 active Not Available Not Available Not Avai lable doxycycli ne hyclate 100 mg capsule TAKE 1 CAPSULE BY MOUTH TWICE A DAY 08/17 completed Not Available Not Available Not Available Apri 0.15 mg-0.03 mg tablet TAKE 1 TABLET BY MOUTH EVERY DAY 03/31 completed Not Available Not Available Not Available Prenatabs Rx 29 mg iron-1 mg tablet TAKE 1 TABLET BY MOUTH EVERY DAY active Not Available Not Available No t Available fluconazo le 150 mg tablet TAKE 1 TABLET BY MOUTH ONCE FOR 1 DOSE, THEN REPEAT IN 72 HRS 08/16 completed Not Available Not Available Not Available ondansetr on HCl 4 mg tablet TAKE 1 TABLET (4 MG TOTAL) BY MOUTH EVERY 6 (SIX) HOURS NEEDED FOR NAUSEA OR VOMITING 03/31 completed Not Available Not Available Not Available prednison e 20 mg tablet TAKE 2 TABLETS BY MOUTH EVERY DAY FOR 5 DAYS 03/31 completed Not Available Not Available Not Available metronida zole 500 mg tablet TAKE 1 TABLET BY MOUTH TWICE A DAY FOR 7 DAYS 08/16 completed Not Available Not Available Not Available Aygestin 5 mg tablet Take 1 tab PO daily x 10 days if no menses for 3 months 03/15 completed Aygestin 5mg Tablet RxNorm: [id number] Allow Substitu tion: True Refill Denied: No Not Available Not Available Not Available prochlorp erazine maleate 10 mg tablet TAKE 1 TABLET BY MOUTH EVERY 8 HOURS NEEDED 09/13 completed Not Available Not Available Not Available cephalexi n 500 mg capsule TAKE 1 CAPSULE BY MOUTH FOUR TIMES A DAY FOR 10 DAYS 11/09 completed Not Available Not Available Not Available ferrous sulfate 325 mg (65 mg iron) tablet Take 1 tablet twice a day by oral route. active Not Available Not Available No t Available buspirone 10 mg tablet TAKE 1 TABLET 3 TIMES A DAY BY ORAL ROUTE NEEDED. 03/31 completed Not Available Not Available Not Available hyoscyami ne 0.125 mg sublingua l tablet TAKE 1 TABLET BY MOUTH EVERY 6 HOURS NEEDED FOR CRAMPING 08/17 completed Not Available Not Available Not Available ursodiol 300 mg capsule TAKE 1 CAPSULE (300 MG TOTAL) BY MOUTH 2 TIMES A DAY. 03/31 completed Not Available Not Available Not Available lidocaine HCl 3 % topical cream apply to the affected area(s) by topical route 2 times per day 02/17 completed lidocain e HCL 3 % Topical Cream RxNorm: [id number] Allow Substitu tion: True Refill Denied: No Edited by: tarsha (Yaz Tay ) on 02/18/20 Stopped by: Yaz Rogers ) on 02/18/20 21 Not Available Not Available Not Available ergocalci ferol (vitamin D2) 1,250 mcg (50,000 unit) capsule 11/09 completed Not Available Not Available Not Available ibuprofen 600 mg tablet 11/09 completed Not Available Not Available Not Available methylpre dnisolone 4 mg tablets in a dose pack TAKE 6 TABLETS ON DAY 1 DIRECTED ON PACKAGE AND DECREASE BY 1 TAB EACH DAY FOR A TOTAL OF 6 DAYS 08/17 completed Not Available Not Available Not Available norethind smith (contrace ptive) 0.35 mg tablet TAKE 1 TABLET BY MOUTH EVERY DAY active Not Available Not Available No t Available metoclopr amide 10 mg tablet TAKE 1 TABLET 3 TIMES A DAY BY ORAL ROUTE NEEDED. active Not Available Not Available No t Available oxycodone 5 mg tablet TAKE 1 TABLET BY MOUTH EVERY 4 HOURS NEEDED FOR PAIN 03/31 completed Not Available Not Available Not Available azithromy micky 500 mg tablet take 2 tablets (1,000 mg) by oral route once with food 02/17 completed azithrom ycin 500 mg oral tablet RxNorm: [id number] Allow Substitu tion: True Refill Denied: No Edited by: Yaz Rogers ) on 02/18/20 Stopped by: Yaz Rogers ) on 02/18/20 21 Not Available Not Available Not Available escitalop nicole 10 mg tablet TAKE 1 TABLET BY MOUTH EVERYDAY AT BEDTIME 03/31 completed Not Available Not Available Not Available escitalop nicole 20 mg tablet TAKE 1 TABLET BY MOUTH EVERY DAY 03/31 completed Not Available Not Available Not Available albuterol 03/31 completed Albutero l Allow Substitu tion: True Refill Denied: No Refill DateOccu rred: 01/15/20 18 Edited by: Tasia Montemayor ) on 09/13/19 20 Stopped by: Tasia Montemayor ) on Not Available Not Available Not Available omeprazol e 03/31 completed Not Available Not Available Not Available 11/09 completed Not Available Not Available Not Available diclofena c 1 % topical gel APPLY 2 GRAMS TO THE AFFECTED AREA(S) BY TOPICAL ROUTE 4 TIMES PER DAY 03/31 completed Not Available Not Available Not Available Vitals Date Recorded Body weight Provider Name an d Address Organization Details Last Updated DateTime 09/14/2023 69930.474 g Melba Rodarte, [facility] [address] [facility], [place], [address], [employer] [facility] 09/14/2023 10:41:34 Date Recorded Body height Body mass index (BMI) Systolic blood pressure Diastolic blood pressure Provider Name and Address Organization Details Last Updated DateTime 09/14/2023 157.48 cm 36.6 kg/m2 106 mm[Hg] 60 mm[Hg] Johanna Pérez [employer] IV 09/14/2023 10:34:30 Date Recorded Body height Body mass index (BMI) Body weight Body temperature Systolic blood pressure Diastolic blood pressure Provider Name and Address Organization Details Last Updated DateTime 4 157.48 cm 37.2 kg/m2 68798.6 9 g 97.8 [degF] 116 mm[Hg] 68 mm[Hg] Susy Pedroza [place] [employer] [facility] 4 14:34:55 Date Recorded Body height Body weight Body temperature Systolic blood pressure Diastolic blood pressure Provider Name and Address Organization Details Last Updated DateTime 4 157.48 cm 803514. 52070 g 98.6 [degF] 110 mm[Hg] 72 mm[Hg] [facility] [employer] 4 10:12:32 Date Recorded Body weight Body mass index (BMI) Body height Body temperature Systolic blood pressure Diastolic blood pressure Provider Name and Address Organization Details Last Updated DateTime 4 70094.1 14044 g 37.5 kg/m2 157.48 cm 98 [degF] 116 mm[Hg] 78 mm[Hg] [facility] [employer] IV 4 16:17:16 Date Recorded Body height Body mass index (BMI) Body weight Body temperature Systolic blood pressure Diastolic blood pressure Provider Name and Address Organization Details Last Updated DateTime 4 157.48 cm 33 kg/m2 49708.0 6 g 97.3 [degF] 116 mm[Hg] 70 mm[Hg] [facility] [employer] 4 16:10:38 Social History Question Answer Notes LastModified by Organizat ion Details LastModified Time Tobacco Smoking Status Never Smoker Madeline Samina morin, [employer] [facility] 04/14/2023 13:53:15 If You Are , What Was Your Level Of Alcohol Consumption Prior To ? Moderate [email or web address] Information not available 04/14/2023 How Many Years Have You Consumed Alcohol? 5 [email or web address] Information not available 08/14/2022 Are You Blind Or Do You Have Difficulty Seeing? No [email or web address] Information not available 08/14/2022 Are You Deaf Or Do You Have Serious Difficulty Hearing? No Information not available 08/14/2022 What Type Of Diet Are You Following? REGULAR [email or web address] Information not available 05/06/2022 Which Illicit Or Recreational Drugs Have You Used? Marijuana [email or web address] Information not available 08/14/2022 How Many Children Do You Have? 0 [email or web address] Information not available 08/14/2022 What Is Your Relationship Status? Single cathy Information not available 04/14/2023 Are You Sexually Active? Yes Information not available 05/06/2022 How Many Years Have You Smoked Tobacco? 0 [email or web address] Information not available 08/14/2022 Sex: Female Functional Status Question Answer Note LastModified by Organizat ion Details LastModified Time How many times per week do you consume alcohol? 3-4 times per week [email or web address] Information not available 08/14/2022 Do you use any illicit or recreational drugs? No [email or web address] Information not available 08/14/2022 Do you or have you ever used any other forms of tobacco or nicotine? No [email or web address] Information not available 08/14/2022 What is your level of alcohol consumption? Moderate [email or web address] Information not available 05/06/2022 Are you currently employed? Yes Information not available 08/14/2022 What is your occupation? [employer] Information not available 11/10/2023 Do you or have you ever used e-cigarettes or vape? Never used electronic cigarettes [email or web address] Information not available 08/14/2022 What is your exercise level? Moderate [email or web address] Information not available 08/14/2022 Mental Status None recorded. Family History Relationship Description Onset Age of this Age Resolved Age Notes LastModified by Organization Details LastModified Time Maternal Grandmother Hypertensive disorder [email or web address] Not available 2022 16:07:21 Maternal Grandmother Heart disease [email or web address] Not available 2022 16:07:21 Maternal Grandmother Diabetes mellitus [email or web address] Not available 2022 16:07:21 Mother Depressive disorder [email or web address] Not available 2022 16:07:21 Mother Hypertensive disorder [email or web address] Not available 2022 16:07:21 Unspecified Relation Myocardial infarction [email or web address] Not available 08/14 16:07:21 Unspecified Relation Cerebrovascu lar accident [email or web address] Not available 16:07:21 Unspecified Relation Malignant neoplastic disease [email or web address] Not available 2022 16:07:21 Unspecified Relation Malignant tumor of colon [email or web address] Not available 2022 16:07:21 Brother Depressive disorder [email or web address] Not available 2022 16:07:21 Paternal Grandmother Malignant tumor of breast Not available 2022 16:07:21 Paternal Grandmother Depressive disorder [email or web address] Not available 2022 16:07:21 Paternal Grandmother Hypertensive disorder [email or web address] Not available 2022 16:07:21 Paternal Grandmother Diabetes mellitus [email or web address] Not available 2022 16:07:21 Notes:Mother has high blood pressure Medical History Condition Response Other Cancer N High Blood Pressure N Colon Cancer N Cytomegalovirus N Hyperthyroidism N Breast Cancer N MRSA N Herpes (HSV) N Blood Transfusion N Lung Cancer N Depression Y Hypothyroidism N Incontinence N Panic Attacks N Neurological Disorder N Deep Vein Thrombosis N Anxiety Disorder Y Autoimmune disease N Arthritis N Tuberculosis/Positive PPD N Shingles N Polycystic Ovarian Syndrome N Cervical Cancer N Hematuria N Chlamydia N Stroke N Varicosities N Seasonal allergies N Crohn's Disease N Alzheimer's/Dementia N COPD/Emphysema N Endometriosis N HPV/Genital Warts N IBS (Irritable Bowel Syndrome) N History of Abnormal Pap N High Cholesterol N Liver Disease N Kidney Infection N Fibromyalgia N Ulcer N Kidney Disease N HIV N Gallbladder disease N Sickle Cell Disease/Trait N Von Willebrand disease N ADD/ADHD Y Eating Disorder N Anemia N Diabetes Mellitus (non-insulin dependent ) N Multiple Sclerosis N Ovarian Problems N Gonorrhea N Frequent Urinary Tract infections N Osteopenia N Headaches/migraines Y GERD (reflux) Y Ovarian Cancer N Diabetes (insulin dependent) N Seizures/Epilepsy N Fibroids N Asthma Y Heart Attack N Lupus N Endometrial Cancer N Rubella N Blood Clotting Disorder N Bipolar Disorder N Diabetes Mellitus (during ) N Ulcerative Colitis N Hepatitis N Heart Disease N Pulmonary Embolism N RPR N Chicken Pox N Osteoporosis N Gynecological History Statement/Question Response Flow Moderate Date of last HPV Date of LMP 01/22/2023 HPV Vaccine N Duration of Flow (days) 5 Most Recent Mammogram Current Control Method None Age at Menarche 8 Date of Last Colonoscopy Most Recent Bone Density Frequency of Cycle (Q days) 25 Date of Last Pap Smear 05/06/2022 Obstetrics History GPAL:G 1 P 2 0 0 2 Type Value Full Term 2 Living 2 Total 1 Past Encounters Encounter ID Performer Location Encounter Start Date Encounter Closed Date Diagnosis/Indication Diagnosis SNOMED-CT Code Diagnosis ICD10 Code Diagnosis Note [id number] Stephen Schulz MD [address] [address] 05/06/2022 12:28:03 05/11/2022 14:14:32 Gynecologic examination 60087921 Z01.89 y.o. here for annual exam. - Pap today with STI screen - Contracept meredith counseling : Discussed options including OCPs, NuvaRing, Nexplanon, hormonal and copper IUDs. Discussed risks, benefits, and side effects of each option, including risk of VTE with hormonal contracept ion and uterine perforatio n with IUD. - Routine labs today - Depression screen NEG - BMI counseling , diet and exercise reviewed - RTO for IUD placement or annual Screening for malignant neoplasm of cervix 842728594 Z12.4 Contracept ion care education 376647666 Z30.09 and has reg cycles and doesnt mind getting Screening for disorder 407473501 Z11.3 N89.9 Body mass index 30+ - obesity 392664537 Z68.37 and discussed bmi < 35 before she gets Bacterial vaginosis 4197 38202 N76.0 [id number] Stephen Schulz MD [address] [address] 08/17/2022 10:14:30 08/18/2022 10:36:28 Contraception care management 836256308 Z30.9 Pt educated on risks which include but not limited to stroke, blood clot or hypertensi on Vs benefits of use, and reviewed ACHES symptoms. Importance of daily administra tion within the same 30 minute time frame reinforced to pt, and on use of condoms or abstinence if dosing schedule is interrupte d. Refills sent. Plan to F/U PRN or at next [employer]. [id number] Stephen Abdi DO [address] [address] 03/31/2023 10:30:10 03/31/2023 12:57:00 test positive 744513316 Z32.01 [id number] JAMES MALIK, [facility] [address] [place] [address] 04/14/2023 13:36:14 04/14/2023 16:02:10 Gestation period, 11 weeks 33111876 Z3A.11 Pt comes in today for a New/First OB visit.Gest ation: 11w 4dEDD: 10/30/2023 -- PMH: Anxiety, Depression -Lexapro, not taking currently. Stopped approx few months ago. Gastric sleeve May 2021.-- Medication s: Taking daily PNV, not taking any other medication s-- Previous OB History: First - - Mom/Sister s with hx of Pre-Eclamp oxana: Denies-- History of Genital HSV: Denies-- Genetic Questions in OB Episode Done-- Accepts [employer]. Would like to know gender. Discussed logging on to the [employer] portal to find Gender Results-- PAP up to date --BMI at Confirmati on: 34.8-Re-ev aluate BMI at 32 weeks -- Low dose Aspirin : 81 mg/day prophylaxi s is recommende d in women at high risk of preeclamps ia. Recommende d to be initiated at 12 weeks gestation. Risk Factors:(t wo present)Pr imiparity( or interval of >10 years between pregnancie s), Obesity (BMI >30), Mother or sister with preeclamps ia, Older than 35, Race, Previous with adverse outcome -- First Trimester Diabetes Screening: Recommende d. Screened with: hemoglobin A1CBMI >25with one or more Risk Factors:-P COS POC-- NOB labs done today-- Accepts UNITY-- PAP Up to Date-- Low dose aspirin recommende d-- Pre-Pregna ncy BMI: 34.8-- RTC 4 weeks Guide: Given and reviewed. Toxoplasmo sis precaution s reviewed. Reviewed office visit schedule during . Reviewed Quickening and normal FHTs. Routine an tenatal care 716961502 Z34.01 Z34.81 O09.511 O09.521 screening 7027 72966 Z36.0 Carrier de tection, molecular genetics 3538981 Z14.8 [id number] Melba Harper Cayden [address] [address] 05/11/2023 12:33:30 05/12/2023 12:59:20 Normal in primigravida 6827710099 43172 Z34.02 compazine Gestation period, 15 weeks 7797312 Z3A.15 Advised pt to f/u immediatel y if temp>101.; abdominal pain, vaginal bleeding greater than 1 pad/hr for greater than 2 hours; vaginal bleeding with or without cramping; bleeding w/clots; cramping like a period. Migraine 06676216 G43.90 9 [id number] Melba Rodarte [address] [address] 2023 14:06:15 2023 21:31:50 Normal in primigravida 1826138621 60592 Z34.02 compazine Migraine 81630708 G43.90 9 improved w/magnesiu m and compazine. Gestation period, 19 weeks 70757647 Z3A.19 Advised pt to f/u immediatel y if temp>101.; abdominal pain, vaginal bleeding greater than 1 pad/hr for greater than 2 hours; vaginal bleeding with or without cramping; bleeding w/clots; cramping like a period. [id number] Melba Harper Cayden, CN[address] [address] 06/24/2023 14:56:24 06/24/2023 16:57:57 Normal in primigravida 5966084264 06732 Z34.02 Gestation period, 21 weeks 52410684 Z3A.21 Advised pt to f/u immediatel y if temp>101.; abdominal pain, vaginal bleeding greater than 1 pad/hr for greater than 2 hours; vaginal bleeding with or without cramping; bleeding w/clots; cramping like a period. screening for malformation 232397209 Z36.3 [id number] Stephen Abdi DO [address] [address] 07/12/2023 15:57:02 07/13/2023 12:21:07 Normal in primigravida 8717281523 35428 Z34.02 Gestation period, 24 weeks 654709583 Z3A.24 Patient is doing well.Follo w-up in a month for routine care. screening for malformation 296011075 Z36.3 [id number] Melba Rodarte CNM [facility] [address] [place] [address] 08/12/2023 16:02:18 08/12/2023 17:41:48 Normal in primigravida 9606411252 68858 Z34.02 Gestation period, 28 weeks 87961954 Z3A.28 labor precaution s given. FM counts discussed. F/u in L&D if experienci ng decreased movement, leaking fluid, 4 or more contractio ns in 1 hour not relieved by rest and fluids, or regular uterine contractio ns increasing in frequency and/or intensity. screening 2437 54134 Z36.89 [id number] [address]M [facility] [address] [place] [address] 08/26/2023 15:33:17 08/26/2023 16:21:50 Normal in primigravida 1191189903 00899 Z34.02 Gestation period, 30 weeks 93364574 Z3A.30 labor precaution s given. FM counts discussed. F/u in L&D if experienci ng decreased movement, leaking fluid, 4 or more contractio ns in 1 hour not relieved by rest and fluids, or regular uterine contractio ns increasing in frequency and/or intensity. [id number] Melba Rodarte CNM [facility] [address] [place] [address] 09/14/2023 09:51:11 09/14/2023 13:09:59 Normal in primigravida 8766812519 85836 Z34.02 Maternal o besity complicating , childbirth and the puerperium, antepartum 2494908347 07 O99.213 Gestation period, 33 weeks 35293391 Z3A.33 labor precaution s given. FM counts discussed. F/u in L&D if experienci ng decreased movement, leaking fluid, 4 or more contractio ns in 1 hour not relieved by rest and fluids, or regular uterine contractio ns increasing in frequency and/or intensity. [id number] Nafisa Hatch CNM [address] [address] 10/05/2023 14:17:27 10/06/2023 13:33:24 Normal in primigravida 5129155159 02927 Z34.02 Maternal o besity complicating , childbirth and the puerperium, antepartum 9121409586 07 O99.213 Gestation period, 36 weeks 61902771 Z3A.36 Additional diagnosis detail: 36 weeks gestation of Patient en counter status 196155524 Z36.85 Additional diagnosis detail: screening for streptococ cus B [id number] Stephen Schulz MD [address] [address] 10/19/2023 09:57:31 10/19/2023 16:27:48 Gestation period, 38 weeks 97899674 Z3A.38 Additional diagnosis detail: 38 weeks gestation of Primigravida 859830368 Z 34.03 Additional diagnosis detail: Primigravi da in third trimester Excessive growth affecting management of mother 07174111 O36.60X0 Additional diagnosis detail: Excessive growth affecting management of , antepartum , single or unspecifie d fetus [id number] Stephen Schulz MD [address] [address] 10/25/2023 15:47:49 11/11/2023 10:23:09 Morbid obesity 322695717 E66.01 [id number] Stephen Schulz MD [address] [address] 11/10/2023 15:20:33 11/12/2023 12:14:10 state 06633183 Z39.2 discussed breast feeding and control and minipill and also any progestero ne type and will switch to combinatio n pill after breast feedingwil l see in 10-12 months for yearly or sooner if neededalso discussed timing of second and waiting 15 months before atttemptin g to get prgnant for medical reasons which were discussed with the patient Depression screening 171 930111 Z13.31 See Screening Section for EPDS Questionna reema Result Anemia of 2734 2003 O99.019 Additional diagnosis detail: Anemia affecting , antepartum Mother cur rently 847003126 Z39.1 Additional diagnosis detail: Breast feeding status of mother Uses oral contraception 4559527 Z30.41 Additional diagnosis detail: Oral contracept meredith use Health Concerns Section Related Observation LastModified by Organization Detai ls LastModified Time None Recorded Concern Status LastModified by Organization Details LastModified Time None Recorded Advance Directives Directive None Recorded Payers Insurance Date Sequence Insurance Name Policy Number Policy Mcdermott Covered Member ID Mcdermott Member ID Guarantor Name 06/16/2023 2 [employer] [id number] Juanisalverto Marquez [id number] Jaunis Marquez 11/03/2024 1 [place] [id number] Juanis Marquez [id number] Juanisalverto Marquez 03/31/2023 1 [employer] [id number] Juanis Madiha Marquez [id number] Juanis Marquez Notes Date Note Type Note Provider Name and Address Organization Details Recorded Time 09/14/2023 text/html September_ is here to day for a routine OB visit. She is currently at 33.3 weeks gestation. She has no complaints or questions. She is taking vitamins. She has felt movement. She denies the presence of vaginal bleed, leaking fluid, abdominal cramps, nausea, vomiting. Melba Rodarte CNM [address] [place], [address], [facility] [employer] IV 09/14/2023 10:46:45 10/05/2023 text/html OB ProblemReport ed bypatient.Associated Symptoms:no abdominal pain; no cramping; no contractions; normal movement; no bleeding; no ROM; no vaginal discharge; no vaginal/vulvar itching or irritation; no edema; no visual changes; no headache; no dizziness; no breathlessness Nafisa Hatch CNM [address] [place], [address], [employer] IV 10/05/2023 15:01:06 10/19/2023 text/html Patient is here today for a routine OB visit. She is currently at 38.3 weeks gestation. vitamins: She felt movement.She denies any complaints of the presence of vaginal bleed, leaking fluid, abdominal cramps, nausea, vomiting, headache or visual disturbances. Stephen Schulz MD [address] [place] [address], [phone], [employer] IV 10/19/2023 10:54:45 10/25/2023 text/html Mayais here toda y for a routine OB visit. She is currently at 39.2 weeks gestation. vitamins: yes She has felt movement.She denies any complaints of the presence of vaginal bleed, leaking fluid, abdominal cramps, nausea, vomiting, headache or visual disturbances. Stephen Schulz MD [address] [place] [address], [phone], [employer] IV 11/15/2023 20:52:15 11/10/2023 text/html VisitReported bypatient.Onset/Timin g:date of delivery: (10/26/23) Quality: Context:feeding choice: bottle Associated Symptoms:no abnormal bleeding; no vaginal discharge; no pelvic pain; laceration well healed; no constipation; no fecal incontinence; no dysuria; no urinary incontinence; no fever; no problems; no mastitis; normal mood Stephen Schulz MD [address] [place] [address], [phone], [employer] IV 11/10/2023 16:47:51 OBGyn Episode Ob Episode Information Episode Created Date Number of Fetuses Patient Bloodtype Patient rh Status Prepregnancy Weight lbs Domestic Partner Domestic Partner Phone Father Name Armhole Baster Hand Status 04/13/20 23 1 A Positive CLOSED Fetus Data First Name Last Name Admitted to NICU Weight (g) Sex Living Outcome Pediatric Complications Fetus ID Race Codes Race Delivery Type false 3160.13 [id number] M true Full Term [id number] Problems Problem Notes Problem Name Start Date End Date Resolution Snomed Code Not e Body mass index 30+ - obesity 08/16/2022 [id number] taking LDASA History of sleeve gastrectomy [id number] May 2021 Robert Calculation Initial Robert Date Initial Exam Date Initial Exam Provider Initial Ultrasound Date Last Menstrual Period Date Ultra Sound Weeks Gestation 10/30/2023 04/13/2023 03/31/2023 01/22/2023 9 Eighteen To Twenty Week Robert Update Ultra Sound Date Fundal Height At Umbil Quickening Date Ultra Sound Latest Weeks Gestation Final Robert Confirmed By Final Robert Confirmed Date Final Robert Date Ultra Sound Latest Days Gestation 0 [id number] 04/13/2023 10/30/19 24 0 Pre- Flowsheet Flowsheet Date 04/14/2023 Garcia Score Blood Edema Fundus Height Fundus Units Glucose Ketones Leukocytes Nitrite Labor Signs Protein Cervic Dilation Cervic Effacement Cervic Station none none none neg Type Weight in lbs Pre/Post Dialysis Refused With clothes 190.042533643798 BP Diastolic BP Location Tested BP Systolic BP Type 70 R arm 118 sitting Fetus Heart Rate Present A 153 Present Fetus Movement A No Comments 1st OB visit. NOB and unity completed. Will start LDASA due to risk factors at 12 weeks. Hx of gastric sleeve in May 2021. Confirmation BMI 34.8. Fetus active on BSUS. RTC in 4 weeks. Flowsheet Date 05/11/2023 Garcia Score Blood Edema Fundus Height Fundus Units Glucose Ketones Leukocytes Nitrite Labor Signs Protein Cervic Dilation Cervic Effacement Cervic Station none none Type Weight in lbs Pre/Post Dialysis Refused With clothes 189.632000817667 BP Diastolic BP Location Tested BP Systolic BP Type 70 R arm 118 sitting Fetus Heart Rate Present A 155 Fetus Movement Comments No OB concerns. magnesium ci trate for migraine prevention. Can take compazine as needed if acetaminophen is not helping. Flowsheet Date 2023 Garcia Score Blood Edema Fundus Height Fundus Units Glucose Ketones Leukocytes Nitrite Labor Signs Protein Cervic Dilation Cervic Effacement Cervic Station none none Type Weight in lbs Pre/Post Dialysis Refused With clothes 195.528504235234 BP Diastolic BP Location Tested BP Systolic BP Type 60 L arm 116 sitting Fetus Heart Rate Present A 156 Fetus Movement A Yes Comments No OB concerns. Migraine imp roving. F/u in 2 wks for anatomy scan. Flowsheet Date 06/24/2023 Garcia Score Blood Edema Fundus Height Fundus Units Glucose Ketones Leukocytes Nitrite Labor Signs Protein Cervic Dilation Cervic Effacement Cervic Station none none Type Weight in lbs Pre/Post Dialysis Refused With clothes 194.58520477114 BP Diastolic BP Location Tested BP Systolic BP Type 64 L arm 110 sitting Fetus Heart Rate Present A 141 Fetus Movement A Yes Comments No OB concerns. Anatomy scan incomplete - need heart, nasal structures; anterior placenta. Flowsheet Date 07/12/2023 Garcia Score Blood Edema Fundus Height Fundus Units Glucose Ketones Leukocytes Nitrite Labor Signs Protein Cervic Dilation Cervic Effacement Cervic Station Type Weight in lbs Pre/Post Dialysis Refused With clothes 196.870195436243 BP Diastolic BP Location Tested BP Systolic BP Type 66 L arm 112 sitting Fetus Heart Rate Present A 136 Present Fetus Movement Comments Good movement. Adequat e fluid. Flowsheet Date 08/12/2023 Garcia Score Blood Edema Fundus Height Fundus Units Glucose Ketones Leukocytes Nitrite Labor Signs Protein Cervic Dilation Cervic Effacement Cervic Station none 32 cm none Type Weight in lbs Pre/Post Dialysis Refused With clothes 203.33526540561 BP Diastolic BP Location Tested BP Systolic BP Type 72 L arm 118 sitting Fetus Heart Rate Present A 146 Fetus Movement A Yes Comments No OB concerns. 3rd tri labs obtained today. F/u in 2 wks Flowsheet Date 08/26/2023 Garcia Score Blood Edema Fundus Height Fundus Units Glucose Ketones Leukocytes Nitrite Labor Signs Protein Cervic Dilation Cervic Effacement Cervic Station none none Type Weight in lbs Pre/Post Dialysis Refused With clothes 197.909157239948 BP Diastolic BP Location Tested BP Systolic BP Type 72 116 sitting Fetus Heart Rate Present A 144 Fetus Movement A Yes Comments No OB concerns. Reviewed lexa ght gain, Hgb. Offered iron infusion but pt declines at this time. Will re-evaluate H/H at 36 wks. She's taking liquid iron twice daily. EFW next appointment. Flowsheet Date 09/14/2023 Garcia Score Blood Edema Fundus Height Fundus Units Glucose Ketones Leukocytes Nitrite Labor Signs Protein Cervic Dilation Cervic Effacement Cervic Station trace none Type Weight in lbs Pre/Post Dialysis Refused With clothes 200.258975979008 BP Diastolic BP Location Tested BP Systolic BP Type 60 106 sitting Fetus Heart Rate Present A 140 Fetus Movement A Yes Comments No OB concerns. EFW 2158 g. 37% TAYLOR 10. F/u in 2 wks. Repeat growth at 37 wks. Flowsheet Date 10/05/2023 Garcia Score Blood Edema Fundus Height Fundus Units Glucose Ketones Leukocytes Nitrite Labor Signs Protein Cervic Dilation Cervic Effacement Cervic Station none 37 cm Type Weight in lbs Pre/Post Dialysis Refused Weight 203.406257171027 BP Diastolic BP Location Tested BP Systolic BP Type 68 116 Fetus Heart Rate Present A 143 Fetus Movement A Yes Comments GBS collected. Occasional Br axton Kaplan. PTL/PIH precautions reviewed. Flowsheet Date 10/19/2023 Garcia Score Blood Edema Fundus Height Fundus Units Glucose Ketones Leukocytes Nitrite Labor Signs Protein Cervic Dilation Cervic Effacement Cervic Station 42 cm 1cm 40% -2 Type Weight in lbs Pre/Post Dialysis Refused 225.646137929467 BP Diastolic BP Location Tested BP Systolic BP Type 72 110 Fetus Heart Rate Present A 150 Fetus Movement Comments induction at [facility] and [place] =80mm, and mid and medium and we will have her back for growth Flowsheet Date 10/25/2023 Garcia Score Blood Edema Fundus Height Fundus Units Glucose Ketones Leukocytes Nitrite Labor Signs Protein Cervic Dilation Cervic Effacement Cervic Station 40 cm none neg 1cm 40% -3 Type Weight in lbs Pre/Post Dialysis Refused 205.502002025133 BP Diastolic BP Location Tested BP Systolic BP Type 78 116 Fetus Heart Rate Present A 140 Fetus Movement Comments efw 8lb 3 oz and ac was 80% and efw 68% and nl fluid and her mom had 2 NVD Flowsheet Date 11/10/2023 Garcia Score Blood Edema Fundus Height Fundus Units Glucose Ketones Leukocytes Nitrite Labor Signs Protein Cervic Dilation Cervic Effacement Cervic Station Type Weight in lbs Pre/Post Dialysis Refused Weight 180.374645982455 BP Diastolic BP Location Tested BP Systolic BP Type 70 116 Fetus Heart Rate Present Fetus Movement Comments Menstrual History Last Menstrual Date Menses Monthly On Bcp Conception Prior Menses Frequency Hcg Plus Date Menarche Onset Age 0901/22/2023 Genetic Screening And Infection History Question Response Note Thalassemia (Kyrgyz, Frisian, Mediterranean, Or Background): MCV < 80 false Intellectual Disability/Autism false Personal or Family History o f Congenital Heart Defect false History of Hepatitis false Muscular Dystrophy false Sickle Cell Disease Or Trait () false Patient Or Partner Has Histo ry Of Genital Herpes false Hemophilia Or Other Blood Disorders false Claudette Disease false Patient's Age Will Be 35 Yea rs Or Older At Estimated Date of Delivery false If Yes, Agent(s) And Strength/Dosage false Medications (including Suppl ements, Vitamins, Herbs, OTC Drugs), Illicit/Recreational Drugs, Alcohol false Other Structural Defect false Recent Travel History Outside of Country false Maternal Metabolic Disorder (eg, Type 1 Diabetes, PKU) false Claude-Sachs (eg, Restorationist, Cajun , Georgian-Alger) false Other Infection History false Caribou's Chorea false Cystic Fibrosis false Recurrent Loss, Or A Stillbirth false Rash Or Viral Illness Since Last Menstrual Period false Live With Someone With TB Or Exposed To TB false Mental Retardation/Autism false If Yes, Was Person Tested For Fragile X? false History of HIV false Any Other Genetic History false Hemoglobinopathy Or Carrier false Prior GBS-infected child false Down Syndrome false Other Inherited Genetic Or C hromosomal Disorder false Patient Or Baby's Father Had A Child With Defects Not Listed Above false Personal or Family History o f Neural Tube Defect (Meningomyelocele, Spina Bifida, Or Anencephaly) false History Of STD, Gonorrhea, C hlamydia, HPV, Syphilis true Trich, chlamydia with full treatment over a year ago. Delivery Information Delivery Date Delivery Type Labor Anesthesia Weeks Gestation Incision Type Labor Labor Length Hrs Delivered By Post Complications Tubal Sterilization Discharge Date Comments 4 Induce d 39.3 false Melba Rodarte CNM Discharge Information Feeding Method Contraceptive Method Maternal HG B and HCT Levels
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
== END 2024-11-03 21:55 | disposition home or self-care (01) ==
PROVIDERS: Emergency Provider Physician Assistant
DX: S80.01XA Contusion of right knee, initial encounter (principal); S29.012A Strain of muscle and tendon of back wall of thorax, initial encounter; D64.9 Anemia, unspecified; K21.9 Gastro-esophageal reflux disease without esophagitis; V49.40XA Driver injured in collision with unspecified motor vehicles in traffic accident, initial encounter; R16.0 Hepatomegaly, not elsewhere classified; K21.00 Gastro-esophageal reflux disease with esophagitis, without bleeding; K44.9 Diaphragmatic hernia without obstruction or gangrene; K80.20 Calculus of gallbladder without cholecystitis without obstruction
CPT/HCPCS: 36415; 70450; 70486; 71260; 72125; 73564; 74177; 80053; 82077; 84703; 85025; 85610; 85730; 93005; 99284; Q9967